=== PATIENT | male | born 1945 ===

== ENCOUNTER → 2018-07-11 | Outpatient (CLI) | payer MEDICARE, OTHER ==
[~2018-07-11] MED LIST: ALLO300 PO; CELE200 PO; DIAZ10 PO; DIAZ5 PO; EZET10-40 PO; LEVSOD75 PO; LISI5 PO; LORA.5 PO; LORA2 PO; METFORMIN 1000 MG; OXYACE5T PO; TAMS.4ER PO; VENL150ER PO
[2018-07-11 13:46] LABS: Creatinine, Urine Random 83.3 mg/dL (27.00-270.00); Protein, Urine Random 8.8 mg/dL (0.0-11.9)
== END ==
LOC: LAB 11:00 → LAB SHORT 11:00
PROVIDERS: Internal Medicine
DX: N18.2 Chronic kidney disease, stage 2 (mild) (principal)
CPT/HCPCS: 82570; 84156

== ENCOUNTER 2019-02-21 16:12 | Inpatient (IN) | payer MEDICARE, OTHER ==
[~2019-02-21] VITALS: Ht 182.9 cm; Wt 125.6 kg
[~2019-02-21 16:12] MED LIST changes: -LEVSOD75 PO; -LISI5 PO; -TAMS.4ER PO; -VENL150ER PO
[2019-02-21] MEDS ORDERED: CYCL10 PO (17:22)
[2019-02-21] MEDS ORDERED: LEVSOD75 PO ×2 (17:23→20:13)
[2019-02-21 17:24] LABS: BASOPHILS ABSOLUTE AUTO 0.05 K/mm3 (0.00-0.23); BASOPHILS PERCENT AUTO 0 % (0-2); EOSINOPHILS ABSOLUTE AUTO 0.21 K/mm3 (0.00-0.68); EOSINOPHILS PERCENT AUTO 1 % (0-6); Hemoglobin 12.2 g/dL (13.5-17.5); IMMATURE GRAN ABSOLUTE AUTO 0.24 K/mm3 (0.00-0.10); IMMATURE GRAN PERCENT AUTO 2 % (0-1); LYMPHOCYTES ABSOLUTE AUTO 2.37 K/mm3 (0.84-5.20); LYMPHOCYTES PERCENT AUTO 16 % (21-46); MONOCYTES ABSOLUTE AUTO 2.35 K/mm3 (0.16-1.47); MONOCYTES PERCENT AUTO 16 % (4-13); Mean Corpuscular HGB Conc 30.5 g/dL (31.5-36.5); Mean Corpuscular Volume 95 fL (80-100); Mean Platelet Volume 9.7 fL (9.1-12.4); NEUTROPHILS ABSOLUTE AUTO 9.87 K/mm3 (1.96-9.15); NEUTROPHILS PERCENT AUTO 65 % (41-73); Platelet Count 417 K/mm3 (150-400); RDW Coefficient Variation 13.8 % (11.7-14.2); RDW Standard Deviation 48.2 fL (35.1-46.3); Red Blood Cell Count 4.21 M/mm3 (4.30-5.90); White Blood Cell Count 15.09 K/mm3 (4.00-11.30)
[2019-02-21] MEDS ORDERED: Prinivil10 MG PO ×2 (17:24→20:13)
[2019-02-21] MEDS ORDERED: PRED20 PO (17:24)
[2019-02-21 17:40] LABS: Troponin I <0.015 ng/mL (0.000-0.040)
[2019-02-21 17:41] LABS: Ethanol (Alcohol), Blood, Med <3 mg/dL
[2019-02-21 17:43] LABS: Alanine Aminotransfer (ALT/SGP 59 U/L (12-78); Albumin, Blood 2.2 g/dL (3.4-5.0); Albumin/Globulin Ratio 0.4 (0.8-1.8); Alk Phos 148 U/L (50-136); Anion Gap 8 mmol/L (6-16); Aspartate Aminotrans (AST/SGOT 52 U/L (12-37); Bilirubin, Total 0.3 mg/dL (0.1-1.0); Blood Urea Nitrogen 28 mg/dL (8-24); Bun/Creatinine Ratio 20.9 (12.0-20.0); CO2, Blood 24 mmol/L (21-32); Calcium, Blood 8.8 mg/dL (8.5-10.1); Chloride, Blood 108 mmol/L (98-108); Creatinine, Blood 1.34 mg/dL (0.60-1.20); Globulin, Blood 4.9 g/dL (2.2-4.0); Glomerular Filtration Rate 55 (60-); Glucose, Blood 109 mg/dL (70-99); Sodium, Blood 140 mmol/L (136-145); Total Protein, Blood 7.1 g/dL (6.4-8.2)
[2019-02-21 17:53] LABS: PCO2 Arterial 50.1 mmHg (35-45); PO2 Arterial 61.6 mmHg (80-100); pH Blood Arterial 7.37 (7.35-7.45)
[2019-02-21 18:02] LABS: Source, Urine Catheter
[2019-02-21 18:11] LABS: Bilirubin, Urine Neg (Neg); Blood, Urine Neg (Neg); Glucose Qualitative, Urine Neg (Neg); Ketones, Urine Neg (Neg); Leukocyte Esterase, Urine Neg (Neg); Nitrite, Urine Neg (Neg); Protein, Urine 1+ (Neg); Urobilinogen, Urine NORM (Normal)
[2019-02-21 18:33] LABS: U Amphetamine Screen Not Detected; U Barbituate Screen Not Detected; U Benzodiazapine Screen Not Detected; U Buprenorphine Screen Not Detected; U Cannabinoids Screen Not Detected; U Cocaine Screen Not Detected; U Methadone Screen Not Detected; U Methamphetamine Screen Not Detected; U Opiates Screen Not Detected; U Oxycodone Screen Not Detected; U Phencyclidine Screen Not Detected; U Propoxyphene Screen Not Detected
[2019-02-21 18:44] LABS: Appearance, Urine Clear (Clear); Color, Urine Yellow (P-Yellow)
[2019-02-21] MEDS ORDERED: ZOLP10 PO (20:06)
[2019-02-21] MEDS ORDERED: TAMS.4ER PO (20:08)
[2019-02-21] MEDS ORDERED: METF500C PO (20:09)
[2019-02-21] MEDS ORDERED: DIVA500ER PO (20:09)
[2019-02-21] MEDS ORDERED: Inderal40 MG PO (20:09)
[2019-02-21] MEDS ORDERED: Ultram50 MG PO (20:11)
[2019-02-21] MEDS ORDERED: VENL150ER PO (20:12)
[2019-02-21] MEDS ORDERED: AMLO10 PO (20:14)
[2019-02-21] MEDS ORDERED: ATOR20 PO (20:14)
[2019-02-21 20:49] LABS: Appearance, CSF Clear (Clear); Color, CSF No Color (No Color); RBC Count, CSF 0 /mm3 (0-0); WBC Count, CSF 1 /mm3 (0-5)
[2019-02-21 21:05] LABS: Glucose, CSF 69 mg/dL (40-70)
[2019-02-21 21:57] LABS: Cryptococcus Neoformans/Gattii Not Detected (NOT DETECT); Enterovirus Not Detected (NOT DETECT); Escherichia Coli K1 Not Detected (NOT DETECT); Haemophilus Influenza Not Detected (NOT DETECT); Herpes Simplex Virus 1 Not Detected (NOT DETECT); Herpes Simplex Virus 2 Not Detected (NOT DETECT); Human Herpesvirus 6 Not Detected (NOT DETECT); Human Parechovirus Not Detected (NOT DETECT); Listeria Monocytogenes Not Detected (NOT DETECT); Neisseria Meningitidis Not Detected (NOT DETECT); Streptococcus Agalactiae Not Detected (NOT DETECT); Streptococcus Pneumoniae Not Detected (NOT DETECT); Varicella Zoster Virus Not Detected (NOT DETECT)
[2019-02-21 22:43] LABS: Free Thyroxine 1.35 ng/dL (0.70-1.60); Troponin I <0.015 ng/mL (0.000-0.040)
[2019-02-22 00:46] LABS: BASOPHILS ABSOLUTE AUTO 0.03 K/mm3 (0.00-0.23); BASOPHILS PERCENT AUTO 0 % (0-2); EOSINOPHILS PERCENT AUTO 1 % (0-6); Hematocrit 37.5 % (37.0-53.0); Hemoglobin 11.4 g/dL (13.5-17.5); IMMATURE GRAN ABSOLUTE AUTO 0.28 K/mm3 (0.00-0.10); IMMATURE GRAN PERCENT AUTO 2 % (0-1); LYMPHOCYTES ABSOLUTE AUTO 1.48 K/mm3 (0.84-5.20); LYMPHOCYTES PERCENT AUTO 10 % (21-46); MONOCYTES ABSOLUTE AUTO 1.15 K/mm3 (0.16-1.47); MONOCYTES PERCENT AUTO 8 % (4-13); Mean Corpuscular HGB 29.1 pg (26.0-34.0); Mean Corpuscular HGB Conc 30.4 g/dL (31.5-36.5); Mean Corpuscular Volume 96 fL (80-100); Mean Platelet Volume 9.5 fL (9.1-12.4); NEUTROPHILS ABSOLUTE AUTO 12.32 K/mm3 (1.96-9.15); NEUTROPHILS PERCENT AUTO 80 % (41-73); Platelet Count 367 K/mm3 (150-400); RDW Coefficient Variation 14.1 % (11.7-14.2); RDW Standard Deviation 49.7 fL (35.1-46.3); Red Blood Cell Count 3.92 M/mm3 (4.30-5.90); White Blood Cell Count 15.36 K/mm3 (4.00-11.30)
[2019-02-22 01:27] LABS: Bun/Creatinine Ratio 15.4 (12.0-20.0); Calcium, Blood 8.7 mg/dL (8.5-10.1); Creatinine, Blood 2.47 mg/dL (0.60-1.20)
[2019-02-22 05:10] LABS: Albumin, Blood 2.2 g/dL (3.4-5.0); Albumin/Globulin Ratio 0.4 (0.8-1.8); Bilirubin, Total 0.2 mg/dL (0.1-1.0); Bun/Creatinine Ratio 15.2 (12.0-20.0); Calcium, Blood 8.8 mg/dL (8.5-10.1); Creatinine, Blood 2.82 mg/dL (0.60-1.20); Globulin, Blood 4.9 g/dL (2.2-4.0); Potassium, Blood 6.2 mmol/L (3.5-5.5); Total Protein, Blood 7.1 g/dL (6.4-8.2)
--- NOTE | 2019-02-22 07:21 | NUR ---
SHIFT SUMMARY PT SLEPT AFTER ADMISSION TO ICU FOR MAJORITY OF NIGHT. AT THE END OF SHIFT PT SEEMES TO BE MORE COHERENT, HOWEVER, STILL MAKES INAPPROPRIATE STATEMENTS OCCASIONALLY AND SEEMES FORGETFUL. CURRENTLY INFUSING IS LR AT 150ML/HR. PT DENIES CP/SOB/ABDOMINAL PAIN. D50 AND IV REGULAR INSULIN WERE GIVEN TO CORRECT POTASSIUM, ALONG WITH CALCIUM GLUCONATE OVER NIGHT. RISING CREATINING AND POTASSIUM SUGGEST WORSENING KIDNEY FUNCTION; BLADDER SCANNER SHOWED 107ML, AND BLADDER WAS NOT EASILY PALPATED. PT STATES HE DOESNT FEEL THE NEED TO VOID BUT AT THE END OF SHIFT, HE FELT LIKE HE COULD TRY, BUT WAS NOT ABLE TO. DAUGHTER SPENT THE NIGHT IN ROOM AT THE BEDSIDE. PT REFUSED CPAP OVERNIGHT, BUT ALLOWED 2LNC, AND HE MAINTAINED SAT'S MID 90'S. NO BM OVERNIGHT. BED IS LOW AND LOCKED. CALL LIGHT WITHIN REACH.
[2019-02-22 07:38] LABS: Phosphorus, Blood 4.9 mg/dL (2.5-4.9)
--- NOTE | 2019-02-22 07:39 | NUR ---
CALL PLACED TO DR PENNINGTON Spoke to provider at 0715 to discuss decrease in kidney function since presenting to ER. Notified of lack of urine output. Asked for order for phosphorus and magnesium to be added to previously drawn labs. New orders given. Notified Dr Pennington that pt sees Dr Marks as an outpatient, Asked for nephrology consultation. No new orders at this time. Temp flores inserted for strict measurement of fluid intake and output.
--- NOTE | 2019-02-22 09:01 | NUR ---
DR MARKS CONSULTED Placed call to provider at 0830. Unable to reach provider. Provider called unit at 0845. Discussed urine output and abnormal labs. Plan to call Dr Marks if pt remains hyperkalemic. Discussed current IV fluids.
[2019-02-22 09:24] LABS: PCO2 Arterial 40.5 mmHg (35-45); pH Blood Arterial 7.37 (7.35-7.45)
[2019-02-22 09:25] LABS: PO2 Arterial 72.2 mmHg (80-100)
[2019-02-22 09:57] LABS: Albumin, Blood 2.2 g/dL (3.4-5.0); Albumin/Globulin Ratio 0.4 (0.8-1.8); Bilirubin, Total 0.2 mg/dL (0.1-1.0); Bun/Creatinine Ratio 15.6 (12.0-20.0); Creatinine, Blood 3.02 mg/dL (0.60-1.20); Globulin, Blood 4.9 g/dL (2.2-4.0); Total Protein, Blood 7.1 g/dL (6.4-8.2)
--- NOTE | 2019-02-22 10:07 | NUR ---
CRITCAL POTASSIUM This RN placed call to lab to inquire about potassium results. Critical value given. Call placed to Dr Marks to update. New orders given. No changes noted on heart monitor.
[2019-02-22 14:21] LABS: Albumin, Blood 2.3 g/dL (3.4-5.0); Anion Gap 6 mmol/L (6-16); Blood Urea Nitrogen 51 mg/dL (8-24); Bun/Creatinine Ratio 19.8 (12.0-20.0); CO2, Blood 26 mmol/L (21-32); Calcium, Blood 9.5 mg/dL (8.5-10.1); Chloride, Blood 106 mmol/L (98-108); Creatinine, Blood 2.57 mg/dL (0.60-1.20); Glomerular Filtration Rate 26 (60-); Glucose, Blood 164 mg/dL (70-99); Phosphorus, Blood 4.3 mg/dL (2.5-4.9); Potassium, Blood 5.3 mmol/L (3.5-5.5); Sodium, Blood 138 mmol/L (136-145)
--- NOTE | 2019-02-22 14:59 | NUR ---
DR FIGUEROA IN TO SEE PT Pt's and daughter at bedside. Pt okay to have renal/cardiac/ADA diet. Also able to transfer to PCU.
[2019-02-22 16:29] LABS: Valproic Acid 43.2 ug/mL (50.0-100.0)
--- NOTE | 2019-02-22 18:07 | NUR ---
SUMMARY Pt A&O x 3, however forgetful and confused at times. Pt has labile mood. Currently on room air, SpO2 90% or greater. SR with first degree heart block per monitor. No events per heart monitor. Pt tolerating renal/cardiac/ADA diet well. Pt had one soft bowel movemement on bedpan this shift. This RN and aide assisted pt to bedside commode earlier, however he was unsteady on feet and did not follow directions well with ambulation. Duke catheter in place for strict measurement of fluid intake and output. Red urine draining from catheter. Pt often pulls on catheter. When instructed not to do so, pt states "I'm not pulling on it." When instructed not to touch catheter, pt states "Well its uncomfortable and I'm not going to stop." Catheter disucussed in great detail with patient by this RN and Dr Pennington. Will continue to closely monitor until care handoff and bedside report with oncoming RN.
--- NOTE | 2019-02-22 19:45 | NUR ---
ASSUMED CARE RECEIVED REPORT FROM KASSIE NAVAS. PT ORIENTED TO SELF, PLACE, AND FAMILY. HE IS SLIGHTLY CONFUSED STILL AND IS IRRITABLE, VERGING ON AGITATION AT TIMES. LAYING ON SIDE IN BED. DENIES PAIN AND SOB. BED IS LOW AND LOCKED. CALL LIGHT WITHIN REACH.
--- NOTE | 2019-02-23 01:43 | NUR ---
UPDATE PT HAS REFUSED CPAP, AND BLOOD GLUCOSE TEST A 2100, HENCE I COULDNT GIVE HIM HIS SLIDING SCALE INSULIN. PT IS SLIGHTLY CONFUSED, BUT MORE ORIENTED THAN HE WAS UPON ADMISSION. HE IS IRRITABLE, VERGING ON AGITATION - CONFUSED WHY HE IS NOT TAKING HIS NORMAL MEDS THAT HE TAKES AT HOME. PER THE FAMILY HE IS VERY STUBBORN WHEN IT COMES TO HEALTHCARE. HE BELIEVES HE IS IN THE ICU BECAUSE OF HIS WORSENING GOUT. I TRIED REORIENTING HIM TO WHY HE IS HERE, AND THE CURRENT PLAN OF CARE - BUT HE BECOMES ARGUMENTATIVE AND DOES NOT WANT TO LISTEN. I SUGGESTED HE ASK THE DOCTOR DURING MORNING ROUNDS TO GIVE HIM AN UPDATE.
[2019-02-23 03:34] LABS: BASOPHILS ABSOLUTE AUTO 0.04 K/mm3 (0.00-0.23); BASOPHILS PERCENT AUTO 0 % (0-2); EOSINOPHILS ABSOLUTE AUTO 0.02 K/mm3 (0.00-0.68); EOSINOPHILS PERCENT AUTO 0 % (0-6); Hematocrit 36.4 % (37.0-53.0); Hemoglobin 11.6 g/dL (13.5-17.5); IMMATURE GRAN ABSOLUTE AUTO 0.25 K/mm3 (0.00-0.10); IMMATURE GRAN PERCENT AUTO 2 % (0-1); LYMPHOCYTES PERCENT AUTO 15 % (21-46); MONOCYTES ABSOLUTE AUTO 1.69 K/mm3 (0.16-1.47); MONOCYTES PERCENT AUTO 12 % (4-13); Mean Corpuscular HGB 29.1 pg (26.0-34.0); Mean Corpuscular HGB Conc 31.9 g/dL (31.5-36.5); Mean Platelet Volume 9.4 fL (9.1-12.4); NEUTROPHILS ABSOLUTE AUTO 10.47 K/mm3 (1.96-9.15); NEUTROPHILS PERCENT AUTO 71 % (41-73); Platelet Count 394 K/mm3 (150-400); RDW Coefficient Variation 13.5 % (11.7-14.2); RDW Standard Deviation 45.5 fL (35.1-46.3); Red Blood Cell Count 3.98 M/mm3 (4.30-5.90); White Blood Cell Count 14.67 K/mm3 (4.00-11.30)
[2019-02-23 03:40] LABS: Mean Corpuscular Volume 92 fL (80-100)
[2019-02-23 03:49] LABS: Albumin, Blood 2.2 g/dL (3.4-5.0); Anion Gap 5 mmol/L (6-16); Blood Urea Nitrogen 41 mg/dL (8-24); Bun/Creatinine Ratio 28.5 (12.0-20.0); CO2, Blood 28 mmol/L (21-32); Chloride, Blood 109 mmol/L (98-108); Creatinine, Blood 1.44 mg/dL (0.60-1.20); Glomerular Filtration Rate 51 (60-); Glucose, Blood 140 mg/dL (70-99); Phosphorus, Blood 2.5 mg/dL (2.5-4.9); Potassium, Blood 4.7 mmol/L (3.5-5.5); Sodium, Blood 142 mmol/L (136-145)
--- NOTE | 2019-02-23 07:37 | NUR ---
SHIFT SUMMARY PT ALERT AND ORIENTED TO SELF, SURROUNDINGS, FAMILY AND FOLLOWS SOME DIRECTIONS. HE BECOMES IRRITABLE AND AGITATED EASILY AND HAS BEEN REFUSING CARE. HE LIKES TO PULL AT HIS CHAVEZ, IV, AND CHORDS. HAS TO BE REDIRECTED TO THE SITUATION. HE BELIEVES HES IN HERE BECAUSE HE STOPPED TAKING HIS MEDS AND HIS GOUT GOT WORSE; DOES NOT COMPREHEND THAT HE WAS GETTING CONFUSED. PT HAD SUFFICIENT URINE OUTPUT, AND HAD A BM OVERNIGHT. PT IS NOT STEADY ON HIS FEET, AND IS WOBLY. SLEPT FOR MAJORITY OF SHIFT. BED IS LOW AND LOCKED. CALL LIGHT WITHIN REACH.
--- NOTE | 2019-02-23 11:30 | NUR ---
DR PENNINGTON IN TO SEE PT Pt's daughter states pt is back to baseline mentation. Dr Pennington states pt to discharge today. DC Duke and IV fluids.
--- NOTE | 2019-02-23 11:49 | NUR ---
DR MARKS IN ROOM Notified provider that Dr Pennington would like to discharge pt today. Dr Marks agreeable with this plan.
[2019-02-23] MEDS ORDERED: MELATONIN5 M1 PO (12:56)
[2019-02-23] MEDS ORDERED: ACET325 PO (12:57)
--- NOTE | 2019-02-23 14:59 | NUR ---
DISCHARGE Pt discharged from unit at 1330 accompanied by spouse, son and daughter. Pt departed via wheelchair, escorted by this RN. Discharge education provided. Reviewed medications that pt is to stop taking. Pt and family denied questions. Duke catheter removed prior to discharge. IV access discontinued.
[2019-02-24 07:07] LABS: COMPLEMENT C3, SERUM 208 mg/dL (82-167); COMPLEMENT C4, SERUM 53 mg/dL (14-44)
[2019-02-24 19:06] LABS: ANTI-DSDNA ANTIBODIES <1 IU/mL (0-9); RNP ANTIBODIES <0.2 AI (0.0-0.9); SJOGREN'S ANTI-SS-A <0.2 AI (0.0-0.9); SJOGREN'S ANTI-SS-B <0.2 AI (0.0-0.9); SMITH ANTIBODIES <0.2 AI (0.0-0.9)
[2019-02-25 15:07] LABS: A/G RATIO 0.8 (0.7-1.7); ALBUMIN 2.4 g/dL (2.9-4.4); ALPHA-1-GLOBULIN 0.4 g/dL (0.0-0.4); ALPHA-2-GLOBULIN 1.3 g/dL (0.4-1.0); GAMMA GLOBULIN 0.7 g/dL (0.4-1.8); GLOBULIN, TOTAL 3.3 g/dL (2.2-3.9); IMMUNOGLOBULIN A, QN, SERUM 139 mg/dL (61-437); IMMUNOGLOBULIN G, QN, SERUM 709 mg/dL (700-1600); IMMUNOGLOBULIN M, QN, SERUM 53 mg/dL (15-143); M-SPIKE Not Observed g/dL (Not Observed); PROTEIN, TOTAL, SERUM 5.7 g/dL (6.0-8.5)
[2019-02-26 15:07] LABS: ATYPICAL PANCA <1:20 titer (Neg:<1:20); CYTOPLASMIC (C-ANCA) <1:20 titer (Neg:<1:20); PERINUCLEAR (P-ANCA) <1:20 titer (Neg:<1:20)
== END 2019-02-23 13:30 | disposition home or self-care (01) | DRG 917 ==
LOC: ER 16:12 → ICUW 22:59
PROVIDERS: Emergency Medicine; Family Medicine; Internal Medicine; Nurse Practitioner Acute Care; ADMIT Internal Medicine
PROC: 009U3ZX Drainage of Spinal Canal, Percutaneous Approach, Diagnostic (ICD-10-PCS; principal; 2019-02-21)
DX: T40.4X1A Poisoning by other synthetic narcotics, accidental (unintentional), initial encounter (principal); G92 Toxic encephalopathy; J96.02 Acute respiratory failure with hypercapnia; J96.01 Acute respiratory failure with hypoxia; N17.9 Acute kidney failure, unspecified; M62.82 Rhabdomyolysis; E87.5 Hyperkalemia; I12.9 Hypertensive chronic kidney disease with stage 1 through stage 4 chronic kidney disease, or unspecified chronic kidney disease; E11.22 Type 2 diabetes mellitus with diabetic chronic kidney disease; N18.3 Chronic kidney disease, stage 3 (moderate); E66.9 Obesity, unspecified; E03.9 Hypothyroidism, unspecified; E78.5 Hyperlipidemia, unspecified; G89.29 Other chronic pain; F32.9 Major depressive disorder, single episode, unspecified; M10.072 Idiopathic gout, left ankle and foot
CPT/HCPCS: 36415; 36600; 51702; 62270; 70450; 71045; 80048; 80053; 80069; 80164; 82140; 82550; 82784; 82803; 82945; 82947; 83605; 83735; 83880; 84100; 84157; 84165; 84439; 84443; 84481; 84484; 85025; 86160; 86225; 86235; 86256; 86334; 87040; 87070; 87205; 87483; 89051; 93005; 93010; 96361-59; 96365-59; 96375-59; 99285-25; C1751; G0480; J0610; J0696; J1100; J1644; J1815; J1940; J2060; J2310; J3010; J3370; J7030; J7050; J7120; J7799; J8499

== ENCOUNTER 2021-09-17 09:21 | Emergency (ER) | payer MEDICARE, BC ==
[~2021-09-17] VITALS: Ht 182.9 cm; Wt 119.3 kg
[~2021-09-17 09:21] MED LIST changes: +ACET325 PO; +AMLO10 PO; +ATOR20 PO; +CYCL10 PO; +DIVA500ER PO; +Inderal40 MG PO; +LEVSOD75 PO; +MELATONIN5 M1 PO; +METF500C PO; +PRED20 PO; +Prinivil10 MG PO; +TAMS.4ER PO; +Ultram50 MG PO; +VENL150ER PO; +ZOLP10 PO
[2021-09-17 11:00] LABS: BASOPHILS ABSOLUTE AUTO 0.05 K/mm3 (0.00-0.23); BASOPHILS PERCENT AUTO 1 % (0-2); EOSINOPHILS ABSOLUTE AUTO 0.74 K/mm3 (0.00-0.68); EOSINOPHILS PERCENT AUTO 7 % (0-6); Hemoglobin 12.8 g/dL (13.5-17.5); IMMATURE GRAN ABSOLUTE AUTO 0.07 K/mm3 (0.00-0.10); IMMATURE GRAN PERCENT AUTO 1 % (0-1); LYMPHOCYTES ABSOLUTE AUTO 3.27 K/mm3 (0.84-5.20); LYMPHOCYTES PERCENT AUTO 31 % (21-46); MONOCYTES ABSOLUTE AUTO 0.94 K/mm3 (0.16-1.47); MONOCYTES PERCENT AUTO 9 % (4-13); Mean Corpuscular HGB 29.7 pg (26.0-34.0); Mean Corpuscular HGB Conc 31.2 g/dL (31.5-36.5); Mean Corpuscular Volume 95 fL (80-100); NEUTROPHILS ABSOLUTE AUTO 5.48 K/mm3 (1.96-9.15); NEUTROPHILS PERCENT AUTO 52 % (41-73); RDW Coefficient Variation 14.6 % (11.7-14.2); RDW Standard Deviation 50.4 fL (35.1-46.3); Red Blood Cell Count 4.31 M/mm3 (4.30-5.90); White Blood Cell Count 10.55 K/mm3 (4.00-11.30)
[2021-09-17 11:19] LABS: Albumin, Blood 3.3 g/dL (3.4-5.0); Bilirubin, Total 0.2 mg/dL (0.1-1.0); Bun/Creatinine Ratio 34.8 (12.0-20.0); Calcium, Blood 8.8 mg/dL (8.5-10.1); Creatinine, Blood 1.35 mg/dL (0.60-1.20); Globulin, Blood 3.3 g/dL (2.2-4.0); Potassium, Blood 4.8 mmol/L (3.5-5.5); Total Protein, Blood 6.6 g/dL (6.4-8.2)
[2021-09-17 11:42] LABS: Platelet Count 206 K/mm3 (150-400)
[2021-09-17 11:43] LABS: Mean Platelet Volume 10.4 fL (9.1-12.4)
[2021-09-17 12:06] LABS: Free Thyroxine 1.16 ng/dL (0.70-1.60); Thyroid Stimulating Hormone 3.75 uIU/mL (0.360-4.800); Triiodothyronine, Free 2.46 pg/mL (2.18-3.98)
[2021-09-17] MEDS ORDERED: AMIT50 PO (13:07)
== END 2021-09-17 13:18 | disposition home or self-care (01) ==
LOC: ER 09:21
PROVIDERS: Emergency Medicine; Physician Assistant
DX: R51.9 Headache, unspecified (principal); E03.9 Hypothyroidism, unspecified; E11.9 Type 2 diabetes mellitus without complications; E78.5 Hyperlipidemia, unspecified; I10 Essential (primary) hypertension; Z87.891 Personal history of nicotine dependence; Z79.899 Other long term (current) drug therapy
CPT/HCPCS: 70450; 80053; 84439; 84443; 84481; 85025

== ENCOUNTER 2021-09-26 20:58 | Inpatient (IN) | payer MEDICARE ==
[~2021-09-26] VITALS: Ht 182.9 cm; Wt 123.0 kg
[~2021-09-26 20:58] MED LIST changes: +AMIT50 PO
[2021-09-26 21:26] LABS: PCO2 Venous 45.1 mmHg (38-42); PO2 Venous 78.4 mmHg (38-42); pH Blood Venous 7.13 (7.34-7.37)
[2021-09-26 21:35] LABS: BASOPHILS ABSOLUTE AUTO 0.06 K/mm3 (0.00-0.23); BASOPHILS PERCENT AUTO 0 % (0-2); EOSINOPHILS ABSOLUTE AUTO 0.52 K/mm3 (0.00-0.68); EOSINOPHILS PERCENT AUTO 3 % (0-6); Hematocrit 39.7 % (37.0-53.0); Hemoglobin 12.3 g/dL (13.5-17.5); IMMATURE GRAN PERCENT AUTO 1 % (0-1); LYMPHOCYTES ABSOLUTE AUTO 3.27 K/mm3 (0.84-5.20); LYMPHOCYTES PERCENT AUTO 22 % (21-46); MONOCYTES ABSOLUTE AUTO 1.08 K/mm3 (0.16-1.47); MONOCYTES PERCENT AUTO 7 % (4-13); Mean Corpuscular HGB 29.9 pg (26.0-34.0); Mean Corpuscular Volume 97 fL (80-100); Mean Platelet Volume 9.9 fL (9.1-12.4); NEUTROPHILS ABSOLUTE AUTO 10.18 K/mm3 (1.96-9.15); NEUTROPHILS PERCENT AUTO 67 % (41-73); Platelet Count 231 K/mm3 (150-400); RDW Coefficient Variation 13.9 % (11.7-14.2); RDW Standard Deviation 49.5 fL (35.1-46.3); Red Blood Cell Count 4.11 M/mm3 (4.30-5.90); White Blood Cell Count 15.21 K/mm3 (4.00-11.30)
[2021-09-26] MEDS ORDERED: LOSARTAN-HCTZ1 EAC5 PO (21:52)
[2021-09-26] MEDS ORDERED: ALLO300 PO (21:52)
[2021-09-26] MEDS ORDERED: FAMO20 PO (21:53)
[2021-09-26] MEDS ORDERED: CATAPRES0.1 MG PO (21:55)
[2021-09-26 22:00] LABS: Alanine Aminotransfer (ALT/SGP 26 U/L (12-78); Albumin, Blood 2.9 g/dL (3.4-5.0); Albumin/Globulin Ratio 0.8 (0.8-1.8); Alk Phos 96 U/L (50-136); Anion Gap 20 mmol/L (6-16); Aspartate Aminotrans (AST/SGOT 16 U/L (12-37); Bilirubin, Total 0.4 mg/dL (0.1-1.0); Blood Urea Nitrogen 57 mg/dL (8-24); Bun/Creatinine Ratio 13.2 (12.0-20.0); CO2, Blood 17 mmol/L (21-32); Calcium, Blood 8.7 mg/dL (8.5-10.1); Chloride, Blood 99 mmol/L (98-108); Creatinine, Blood 4.31 mg/dL (0.60-1.20); Ethanol (Alcohol), Blood, Med <3 mg/dL; Globulin, Blood 3.5 g/dL (2.2-4.0); Glomerular Filtration Rate 13 (60-); Glucose, Blood 98 mg/dL (70-99); Magnesium, Blood 1.9 mg/dL (1.6-2.4); Potassium, Blood 5.4 mmol/L (3.5-5.5); Sodium, Blood 136 mmol/L (136-145); Total Protein, Blood 6.4 g/dL (6.4-8.2)
[2021-09-26] MEDS ORDERED: Oxycodone HCl20 M1 PO (22:25)
[2021-09-26] MEDS ORDERED: ATOR40TA PO (22:26)
[2021-09-26] MEDS ORDERED: LINZESS72 MCG PO (22:27)
[2021-09-26] MEDS ORDERED: METPRE4DP PO (22:28)
[2021-09-26] MEDS ORDERED: ZANAFLEX PO (22:28)
[2021-09-26] MEDS ORDERED: ZOLPIDEM TART12.5 MG PO (22:29)
[2021-09-26] MEDS ORDERED: Inderal40 MG PO (22:29)
[2021-09-26] MEDS ORDERED: DIVALPROEX SOD500 M2 PO (22:30)
[2021-09-26] MEDS ORDERED: [UNRECOGNIZED DRUG - CODE] PO (22:31)
[2021-09-26 22:36] LABS: Source, Urine Straight Cath
[2021-09-26 22:38] LABS: Blood, Urine 1+ (Neg); Glucose Qualitative, Urine Neg (Neg); Ketones, Urine 1+ (Neg); Leukocyte Esterase, Urine Neg (Neg); Nitrite, Urine Neg (Neg); Protein, Urine 2+ (Neg); Urobilinogen, Urine NORM (Normal)
[2021-09-26 22:49] LABS: Bilirubin, Urine 1+ (Neg)
[2021-09-26 22:50] LABS: Appearance, Urine Clear (Clear); Color, Urine Yellow (P-Yellow)
[2021-09-26 22:51] LABS: White Blood Cells, Urine 0-2 /hpf (0-5)
[2021-09-26 22:52] LABS: Bacteria Mod /hpf; Squamous Epithelial Cells Not Seen /hpf (Few); Transitional Epithelial Cells Rare /hpf (0-Rare)
[2021-09-26 22:53] LABS: U Amphetamine Screen Not Detected; U Barbituate Screen DETECTED; U Benzodiazapine Screen Not Detected; U Buprenorphine Screen Not Detected; U Cannabinoids Screen Not Detected; U Cocaine Screen Not Detected; U Methadone Screen Not Detected; U Methamphetamine Screen Not Detected; U Opiates Screen Not Detected; U Oxycodone Screen DETECTED; U Phencyclidine Screen Not Detected; U Propoxyphene Screen Not Detected
[2021-09-26 23:17] LABS: Influenza A Negative (NEGATIVE); Influenza B Negative (NEGATIVE)
[2021-09-26 23:33] LABS: SARS-Cov-2 (COVID-19) PCR, MMC NEGATIVE (NEGATIVE)
[2021-09-27 00:40] LABS: Valproic Acid 97.6 ug/mL (50.0-100.0)
[2021-09-27 03:27] LABS: Source, Urine Foley catheter
[2021-09-27 03:29] LABS: Blood, Urine 2+ (Neg); Glucose Qualitative, Urine Neg (Neg); Ketones, Urine 1+ (Neg); Leukocyte Esterase, Urine Neg (Neg); Nitrite, Urine Neg (Neg); Protein, Urine 2+ (Neg); Specific Gravity, Urine 1.015 (1.003-1.022); Urobilinogen, Urine NORM (Normal)
[2021-09-27 05:05] LABS: Appearance, Urine Clear (Clear); Bilirubin, Urine 1+ (Neg); Color, Urine Yellow (P-Yellow)
[2021-09-27 05:06] LABS: Albumin, Blood 2.8 g/dL (3.4-5.0); Albumin/Globulin Ratio 0.8 (0.8-1.8); Bilirubin, Total 0.3 mg/dL (0.1-1.0); Calcium, Blood 8.2 mg/dL (8.5-10.1); Creatinine, Blood 4.13 mg/dL (0.60-1.20); Globulin, Blood 3.3 g/dL (2.2-4.0); Potassium, Blood 5.8 mmol/L (3.5-5.5); Total Protein, Blood 6.1 g/dL (6.4-8.2)
[2021-09-27 05:06] LABS: Bacteria Few /hpf; Red Blood Cells, Urine 0-2 /hpf (0-2); Squamous Epithelial Cells Few /hpf (Few)
--- NOTE | 2021-09-27 06:07 | NUR ---
ASSUMED CARE AND PATIENT ARRIVED TO ICU AT 0045 SHIFT SUMMARY: NEURO - PT WAS EXTREMELY CONFUSED AND COMBATIVE UPON TRANSFER TO ICU. 4-5 RNs AND PT ED TEACHER ASSISTED TO GET PATIENT RESTRAINED. PT FAMILY WAS ABLE TO CALM PT DOWN BUT STILL WAS EXTREMELY CONFUSED. OVERNIGHT, PT MENTATION IMPROVING. ALERT TO SELF. NO LONGER COMBATIVE AND ABLE TO PARTICIPATE WITH CARE. CAN MOVE ALL EXT EQUALLY AND STRONG. BILAT SOFT WRIST RESTRAINTS REMAINS IN PLACE DUE TO RISK OF PT PULLING ON LINES AND CONFUSION. RESP - ON 3L NASAL CANNULA. LUNGS ARE DIMINISHED WITH EXP WHEEZING. NO COUGH. CARDIAC - HYPOTENSIVE, LEVOPHED WAS INITIATED BUT IS NOW OFF. PULSES ARE PALPABLE. NO EDEMA. AFEBRILE. GI/ - PLACED A RECTAL TUBE AND CHAVEZ CATHTER. 1X LACTULOSE ENEMA GIVEN OVERNIGHT. ABDOMEN FIRM AND HYPOACTIVE. INTEG - LEFT LEG SKIN TEAR, AND BRUISING ON LOWER BACK.
[2021-09-27 09:34] LABS: Albumin, Blood 2.9 g/dL (3.4-5.0); Anion Gap 19 mmol/L (6-16); Blood Urea Nitrogen 73 mg/dL (8-24); Bun/Creatinine Ratio 19.3 (12.0-20.0); CO2, Blood 17 mmol/L (21-32); Calcium, Blood 8.2 mg/dL (8.5-10.1); Chloride, Blood 104 mmol/L (98-108); Creatinine, Blood 3.79 mg/dL (0.60-1.20); Glomerular Filtration Rate 16 (60-); Glucose, Blood 185 mg/dL (70-99); Phosphorus, Blood 7.6 mg/dL (2.5-4.9); Sodium, Blood 140 mmol/L (136-145)
[2021-09-27 12:29] LABS: International Normalized Ratio 1.11; Prothrombin Time Results 11.6 Sec (9.7-11.5)
[2021-09-27 12:56] LABS: Albumin, Blood 2.9 g/dL (3.4-5.0); Albumin/Globulin Ratio 0.9 (0.8-1.8); Bilirubin, Total 0.5 mg/dL (0.1-1.0); Bun/Creatinine Ratio 20.7 (12.0-20.0); Creatinine, Blood 3.68 mg/dL (0.60-1.20); Globulin, Blood 3.3 g/dL (2.2-4.0); Potassium, Blood 4.8 mmol/L (3.5-5.5); Total Protein, Blood 6.2 g/dL (6.4-8.2)
--- NOTE | 2021-09-27 13:51 | NUR ---
REASSESSMENT PT CONTINUES TO BE VERY CONFUSED. HE IS ONLY ORIENTED TO HIMSELF. HE DOESN'T BELIEVE THIS NURSE WHEN HE IS TOLD HE IS IN THE HOSPITAL. HE OFTEN REFERS TO THIS NURSE BY HIS DAUGHTER, SALOMON'S NAME. HE TALKS TO PEOPLE THAT AREN'T VISIBLE IN THE ROOM. LUNGS ARE CLEAR. WHEN HE IS AWAKE HE MAINTAINS SPO2 AROUND 95% ON RA. WHEN HE SLEEPS HE SEEMS TO HAVE SOME SLEEP APNEA AND CYCLICALLY DROPS TO THE MID 80S SO 2L/NC PLACED ON HIM FOR WHEN HE IS SLEEPING. SR, SBP 150S WITH MAP IN THE 90S. CHAVEZ HAS CLOUDY YELLOW URINE WITH PINK TINGE. PT HAS PULLED 2 CHAVEZ STAT LOCKS OFF. HE IS CONTINUOUSLY FIDGETING AND TRYING TO PULL OFF HIS RESTRAINTS SO HE CAN GET OUT OF BED. HE IS NOT REDIRECTABLE. PT'S DAUGHTER AND VISITED PT AND WERE UPDATED.
--- NOTE | 2021-09-27 17:03 | NUR ---
SHIFT SUMMARY PT'S MENTATION HAS BEEN IMPROVING THROUGHOUT THE AFTERNOON. HE IS NOW ORIENTED TO PERSON, KNOWS HE IS IN [place] BUT HAS TROUBLE FIGURING OUT HE IS IN THE HOSPITAL. HE KNOWS THE MONTH AND YEAR. HE WILL START CONVERSING APPROPRIATELY BUT MID CONVERSATION HE WILL START TALKING ABOUT NONRELATED THINGS AND HIS CONFUSION STARTS TO SHOW AGAIN. HE IS FOLLOWING DIRECTIONS WELL ENOUGH THAT HE HAS BEEN SAFE TO HAVE THE LEG RESTRAINTS OFF, BED ALARM ON, BUT HE IS STILL PICKING AT HIS CHAVEZ AND CENTRAL LINE WHEN HE WAS TRIALLED WITHOUT THE WRIST RESTRAINTS. HIS LUNGS REMAIN CLEAR, CURRENTLY ON RA WITH SPO2 99%. SR WITH 1AVB, BP STABLE. HE HAS BEEN TOLERATING SIPS OF WATER. SPOKE WITH DR. KERNS AND GOT OK TO GIVE PT PO LACTULOSE INSTEAD OF ENIMA IF HE APPEARS SAFE TO DO SO. RECTAL TUBE REMAINS IN PLACE. CHAVEZ WITH GOOD OUTPUT, SEE I/O. PT'S FAMILY VISITED WITH HIM AGAIN THIS AFTERNOON.
--- NOTE | 2021-09-27 20:42 | NUR ---
ASSUMED CARE @ 1900 PT WAS GETTING AGITATED AND BECAME COMBATIVE UPON INITIAL ASSESSMENT. PT WAS ONLY ON BILAT SOFT WRIST RESTRAINTS AND WAS ABLE TO GET OUT OF 1X RESTRAINT. PT STARTED KICKING, TRYING TO HIT NURSES, UNABLE TO REASON WITH PT, EXTREMELY CONFUSED AN AGITATED. MD NOTIFIED OF PT BEHAVIOR AND CONCERN FOR PT SAFETY AND STAFF SAFETY. PRECEDEX WAS STARTED PER MD ORDER. 2029 - PT STILL VERY CONFUSED, NOT COMBATIVE ANYMORE. STILL TRYING TO PULL ON LINES/CORDS. REMAINS ON 4 POINT RESTRAINTS. PRECEDEX UP TO 1.0 MCG/KG/HR.
[2021-09-28 03:34] LABS: BASOPHILS ABSOLUTE AUTO 0.01 K/mm3 (0.00-0.23); BASOPHILS PERCENT AUTO 0 % (0-2); EOSINOPHILS PERCENT AUTO 0 % (0-6); Hematocrit 35.3 % (37.0-53.0); Hemoglobin 11.7 g/dL (13.5-17.5); IMMATURE GRAN ABSOLUTE AUTO 0.06 K/mm3 (0.00-0.10); IMMATURE GRAN PERCENT AUTO 1 % (0-1); LYMPHOCYTES ABSOLUTE AUTO 0.79 K/mm3 (0.84-5.20); LYMPHOCYTES PERCENT AUTO 7 % (21-46); MONOCYTES ABSOLUTE AUTO 1.77 K/mm3 (0.16-1.47); MONOCYTES PERCENT AUTO 16 % (4-13); Mean Corpuscular HGB 30.5 pg (26.0-34.0); Mean Corpuscular HGB Conc 33.1 g/dL (31.5-36.5); Mean Platelet Volume 9.8 fL (9.1-12.4); NEUTROPHILS ABSOLUTE AUTO 8.21 K/mm3 (1.96-9.15); NEUTROPHILS PERCENT AUTO 76 % (41-73); Platelet Count 202 K/mm3 (150-400); RDW Coefficient Variation 14.3 % (11.7-14.2); RDW Standard Deviation 47.7 fL (35.1-46.3); Red Blood Cell Count 3.84 M/mm3 (4.30-5.90); White Blood Cell Count 10.84 K/mm3 (4.00-11.30)
[2021-09-28 03:43] LABS: Mean Corpuscular Volume 92 fL (80-100)
[2021-09-28 03:51] LABS: Albumin, Blood 2.8 g/dL (3.4-5.0); Albumin/Globulin Ratio 0.9 (0.8-1.8); Bilirubin, Total 0.3 mg/dL (0.1-1.0); Bun/Creatinine Ratio 27.9 (12.0-20.0); Calcium, Blood 8.2 mg/dL (8.5-10.1); Creatinine, Blood 2.04 mg/dL (0.60-1.20); Globulin, Blood 3.1 g/dL (2.2-4.0); Potassium, Blood 4.2 mmol/L (3.5-5.5); Total Protein, Blood 5.9 g/dL (6.4-8.2)
--- NOTE | 2021-09-28 05:34 | NUR ---
SHIFT SUMMARY: NEURO - PT WAS CONFUSED AND ANXIOUS THROUGHOUT THE NIGHT. AT THE START OF MINE GEOLOGIST PT BECAME COMBATIVE AND EXTREMELY AGITATED - PRECEDEX GTT WAS STARTED. CURRENTLY PRECEDEX HAS BEEN TITRATED FROM MAXIMUM DOWN TO 0.8 MCG/KG/MIN. PT IS NOW CALM, BUT STILL PULLING ON RESTRAINTS AND LINES. APOLOGETIC BUT STILL CONFUSED. STARTING TO ACCEPT THAT HE IS IN A HOSPITAL AND THAT HE IS SICK. RESP - ON 1.5 L ON NASAL CANNULA. NO COUGH. NO COMPLAINTS OF SOB CARDIAC - HYPERTENSIVE WHEN PT WAS AGITATED. PULSES ARE PALPABLE. AFEBRILE. NO EDEMA. GI/ - STILL CURRENTLY NPO, TOLERATED SIPS OF WATER WHEN AWAKE AND ALERT. 2X LACTULOSE ENEMA GIVEN OVERNIGHT. RECTAL TUBE REMAINS IN PLACE, PATENT AND DRAINING TO GRAVITY. CHAVEZ CATHETER PATENT, PT WAS AGGRESSIVELY PULLING ON CATHETER WHEN PT WAS COMBATIVE AND AGITATED - PENIS STILL SLIGHTLY BLEEDING, URINE OUTPUT PINK/RED TINGED. INTEG - LEFT LEG DRESSING INTACT, BACK BRUISING INFUSIONS - PRECEDEX, NORMAL SALINE TO KEEP VEIN OPEN.
--- NOTE | 2021-09-28 07:31 | NUR ---
0800 assumed care: Dick was in bed alert to self and to place "hospital". His vs are stable at this time. He is on precedex to [facility] CL at 1.4. He remains in tough cuff restraints to upper extremeties bilat. to keep lines and tube safe. His urine is less pink at this time but he was pulling on the flores over night. Will assess swallow today and see if he will take his medication.
--- NOTE | 2021-09-28 14:26 | NUR ---
1400 UPDATE JOSE ANGEL HAAS HAS BEEN MUCH MORE APPROPRIATE TODAY. HE WAS TAKEN OUT OF RESTRAINTS AT 0930 AND HAS NOT PULLED ON ANY LINES. HE IS NOW OFF PRECEDEX AND BEING BEHAVIORALLY APPROPRIATE, NO PULLING AT THINGS, OR THRASHING IN BED OR FIGHTING STAFF. HE STATES HE FEELS AWFUL HE WAS EVEN LIKE THAT AND THAT HE THOUGHT IT WAS ALL A DREAM. OT WORKED WITH HIM THIS AFTERNOON AND STATED HE MOVED WELL JUST NEEDING SOME REDIRECTION. IS ADVANCING HIS DIET AND ADDRESSING HIS ELEVATED BP HE IS HAVING SINCE HE IS NOW OFF PRECEDEX. HE ALSO HAS BEEN CHANGED TO MEDICAL FLOOR STATUS. AWAITING TRANSFER.
--- NOTE | 2021-09-28 18:47 | NUR ---
PT ARRIVED TO THE MEDICAL FLOOR FROM THE ICU AROUND 1645. PT WAS ABLE TO TRANSFER FROM THE BED TO HIS BED WITH MINIMAL ASSIST. PT ORIENTED TO THE ROOM LAYOUT AND CALL SYSTEM. THE PT WORKED WITH THE PHYSICAL THERAPIST AND DID WELL PT HAS BALLARD BP HIGH MEDICATED WITH HYDRAZOLIN WITH LITTLE EFFECT. CALLED DR. Tam HOME BP MED STARTED AND GIVEN PT GIVEN TYLENOL. PT IS UP IN THE CHAIR AT THIS TIME. PT APPEARS TO BE BREATHING EASILY ON RA, CALL LIGHT IN REACH
--- NOTE | 2021-09-28 22:26 | NUR ---
NOW THAT PT IS EATING, MD NOTIFIED AND ACCU CHECKS CHANGED FROM Q 6, TO ACHS. NO INSULIN GIVEN THIS HS
--- NOTE | 2021-09-28 23:06 | NUR ---
CHAVEZ DC'D PER MD ORDERS WHEN CHAVEZ PLACED. WILL MONITOR FOR VOIDING. ALERT AND ORIENTED
--- NOTE | 2021-09-29 02:03 | NUR ---
VOIDED - POST REMOVAL OF CATH, INCONT OF URINE
--- NOTE | 2021-09-29 05:04 | NUR ---
N/V CONTINUES EVEN POST ANTIEMETIC. PROJECTILE EMESIS. C/O "COLD SWEATS". T 96.7 TEMPORAL. BP ELEVATED - WAS 195/112, NOW 170/85 AFTER ANTIHYPERTENSIVE. VERBAL RESPONSSE INTERMITTENT CONFUSION. CALL PLACED TO MD, ORDERS FOR TRANSFER TO ICU ON PCU STATUS OBTAINED. EMESIS APPEARS DARK BROWN. WILL SEND SAMPLE TO LAB FOR TEST.
--- NOTE | 2021-09-29 06:00 | NUR ---
ARRIVED TO ICU PATIENT ARRIVED TO ICU ON ROOM AIR, ALERT AND TRACKING TO SOUND, VOMITING LARGE AMOUNTS OF DARK BROWN/RED EMESIS. HR 130'S-140'S IN AFIB. SPO2 LOW TO MID 90'S ON ROOM AIR. BP ELEVATED. NO MEDS INF. RT IJ CL IN PLACE. A&O X 4. FOLLOWS COMMANDS, CALM BUT AGITATED AT TIMES. EASILY CONSOLED AND REDIRECTED. LUNGS CLEAR AND DIM T/O. NGT PLACED TO LT NARE AND ON LOW INT SUCTION. BT HYPERACTIVE T/O. EMESIS SLOWED AFTER ZOFRAN 4MG IV AND LOPRESSOR 5MG IV GIVEN. HR ALSO DECREASED TO 80'S AT LOWEST, NOW MAINTAINING AT 110'S. USES URINAL AT BEDSIDE, C/O BURNING WITH URINATION. SKIN OVERALL CLAMMY, COOL, PALE, WOUND TO LT SILVEIRA FROM FALL AT HOME-ADHESIVE DRESSING IN PLACE. NO OTHER CHANGES. REPORT COMPLETED WITH KASSIE CARDENAS.
[2021-09-29 06:05] LABS: Albumin, Blood 3.4 g/dL (3.4-5.0); Albumin/Globulin Ratio 0.9 (0.8-1.8); Bilirubin, Total 0.5 mg/dL (0.1-1.0); Bun/Creatinine Ratio 25.6 (12.0-20.0); Calcium, Blood 9.8 mg/dL (8.5-10.1); Creatinine, Blood 1.17 mg/dL (0.60-1.20); Globulin, Blood 3.9 g/dL (2.2-4.0); Potassium, Blood 3.2 mmol/L (3.5-5.5); Total Protein, Blood 7.3 g/dL (6.4-8.2)
--- NOTE | 2021-09-29 06:06 | NUR ---
TRANSFERRED PT TO ICU RM 09. REPORT GIVEN TO ICU NURSE. PT CONTINUES TO VOMIT.
[2021-09-29 07:58] LABS: Hematocrit 43.7 % (37.0-53.0); Hemoglobin 14.4 g/dL (13.5-17.5)
--- NOTE | 2021-09-29 09:43 | NUR ---
ASSUMED CARE REPORT FROM LUDMILA FERNANDO AT 0700. PT RESTING IN BED. DRY HEAVING. DR NOTIFIED, MEDICATED c PHENERGAN AND FENTANYL IVP ORDERED. PAIN AND NAUSEA RESOLVED. A&OX 3. FOLLOWS COMMANDS. COOPERATIVE c CARE. LUNGS CLEAR. ABD OBESE, SOFT, NON TENDER. BT X 4. NGT TO LEFT NARE, LIS, MAROON EMESIS OUT. PT ABLE TO USE CALL LIGHT APPROPRIATELY, MAKE NEEDS KNOWN AND REPOSITION SELF IN BED. WILL CONTINUE TO MONITOR.
[2021-09-29 14:09] LABS: Hematocrit 43.5 % (37.0-53.0); Hemoglobin 14.6 g/dL (13.5-17.5)
--- NOTE | 2021-09-29 18:00 | NUR ---
TRANSFER TO MEDICAL FLOOR/REPORT TO WYATT FERNANDO NGT REMOVED THIS SHIFT. 300 ML MAROOM EMESIS OUT. N/V IMPROVED AFTER NGT REMOVED. PT C/O IRRITATION TO GI TRACT. TOLERATED CLEAR LIQUID DIET WELL. CVC TO RIJ REMOVED, PETROLEUM DRESSING INTACT. PT TRANSFERRED TO [facility]. ALL BELONGINGS SENT c PT.
--- NOTE | 2021-09-29 18:03 | NUR ---
PT ARRIVED TO UNIT @ THIS TIME SBA TO BED. PT DENIES PAIN OR N/V. ORIENTATED TO ROOM. CALL LIGHT W/IN REACH. REQUESTING AMBIEN FOR REST, PLAN TO MEDICATE PER EMAR.
--- NOTE | 2021-09-30 05:03 | NUR ---
PT SLEEPING CONFORTABLY AT BEGINING OF SHIFT WITH 10MG AMBIEN. PT WOKE UP WITH NIGHT ASSESSMENT AND MEDICATIONS AND WAS UNABLE TO SLEEP. PT TAKES AN EXTENDED RELEASE AMBIEN AT HOME AND STATES THE ONE GIVEN BY THE HOSPITAL DOES NOT WORK AND CAUSES HIM HEADACHES. PT STATES HE WAS TOLD BY ANOTHER NURSE HE COULD NOT BRING HIS HOME MEDICATIONS IN, PT EDUCATED ON THE ABILITY TO DO SO IF HE STAYS ANOTHER NIGHT. HYPERTENSION WITH MORNING VITALS, PT GIVEN 20MG OF HYDRALAZINE WITH ADDEQUATE CHANGE IN BP.
[2021-09-30 05:14] LABS: BASOPHILS ABSOLUTE AUTO 0.03 K/mm3 (0.00-0.23); BASOPHILS PERCENT AUTO 0 % (0-2); EOSINOPHILS ABSOLUTE AUTO 0.02 K/mm3 (0.00-0.68); EOSINOPHILS PERCENT AUTO 0 % (0-6); Hematocrit 45.3 % (37.0-53.0); Hemoglobin 14.6 g/dL (13.5-17.5); IMMATURE GRAN ABSOLUTE AUTO 0.08 K/mm3 (0.00-0.10); IMMATURE GRAN PERCENT AUTO 1 % (0-1); LYMPHOCYTES ABSOLUTE AUTO 2.59 K/mm3 (0.84-5.20); LYMPHOCYTES PERCENT AUTO 19 % (21-46); MONOCYTES PERCENT AUTO 14 % (4-13); Mean Corpuscular HGB 29.5 pg (26.0-34.0); Mean Corpuscular HGB Conc 32.2 g/dL (31.5-36.5); Mean Corpuscular Volume 92 fL (80-100); Mean Platelet Volume 9.9 fL (9.1-12.4); NEUTROPHILS ABSOLUTE AUTO 9.24 K/mm3 (1.96-9.15); NEUTROPHILS PERCENT AUTO 67 % (41-73); Platelet Count 261 K/mm3 (150-400); RDW Coefficient Variation 15.3 % (11.7-14.2); RDW Standard Deviation 50.5 fL (35.1-46.3); Red Blood Cell Count 4.95 M/mm3 (4.30-5.90); White Blood Cell Count 13.86 K/mm3 (4.00-11.30)
[2021-09-30 05:38] LABS: Albumin, Blood 3.4 g/dL (3.4-5.0); Albumin/Globulin Ratio 0.9 (0.8-1.8); Bilirubin, Total 0.6 mg/dL (0.1-1.0); Bun/Creatinine Ratio 18.9 (12.0-20.0); Calcium, Blood 9.5 mg/dL (8.5-10.1); Creatinine, Blood 1.06 mg/dL (0.60-1.20); Globulin, Blood 3.9 g/dL (2.2-4.0); Total Protein, Blood 7.3 g/dL (6.4-8.2)
[2021-09-30 13:32] LABS: Bun/Creatinine Ratio 17.6 (12.0-20.0); Creatinine, Blood 1.02 mg/dL (0.60-1.20); Potassium, Blood 3.3 mmol/L (3.5-5.5)
--- NOTE | 2021-09-30 18:00 | NUR ---
SHIFT SUMMARY PATIENT IS ALERT AND ORIENTED X4. PATIENT HAS HOME MEDICATION OF AMBIEN IN DRAWER, TRIED CONFIRMING WITH PHARMACY AND CANT CREATE SCANABLE CODE. PATIENT HAD HTN IN THE MORNING AND WAS GIVEN PRN HYDRAZINE. PATIENT HAS HAD NO OTHER ACUTE EVENTS THIS SHIFT. COVERAGE FOR CBG WAS NOT NEEDED THIS SHIFT. PATIENT IS PLEASENT AND COOPERATIVE THIS SHIFT. BED IN LOCKED AND LOWEST POSITION. CALL LIGHT IN PLACE. WILL MONITOR UNTIL SHIFT CHANGE.
--- NOTE | 2021-10-01 04:35 | NUR ---
PT ANXIOUS ABOUT GETTING DISCHARGED, WANTING TO KNOW IF THE DOCTOR WROTE ANYTHING IN HIS CHART BECAUSE HE WAS TOLD HE WAS GOING HOME 10/01. PT STATES HIS DAUGHTER IS DRIVING DOWN FROM [place] FOR HIS DISCHARGE. BP ELEVATED THIS MORNING REQUIRING IV HYDRALIZINE. PT'S HR ELEVATES TO 130-140 PER TELE WHEN PATIENT IS AMBULATING OR DISCUSING HIS DISCHARGE.
[2021-10-01 05:16] LABS: BASOPHILS ABSOLUTE AUTO 0.06 K/mm3 (0.00-0.23); BASOPHILS PERCENT AUTO 0 % (0-2); EOSINOPHILS ABSOLUTE AUTO 0.16 K/mm3 (0.00-0.68); EOSINOPHILS PERCENT AUTO 1 % (0-6); Hematocrit 44.9 % (37.0-53.0); Hemoglobin 14.6 g/dL (13.5-17.5); IMMATURE GRAN ABSOLUTE AUTO 0.12 K/mm3 (0.00-0.10); IMMATURE GRAN PERCENT AUTO 1 % (0-1); LYMPHOCYTES ABSOLUTE AUTO 3.89 K/mm3 (0.84-5.20); LYMPHOCYTES PERCENT AUTO 26 % (21-46); MONOCYTES ABSOLUTE AUTO 1.52 K/mm3 (0.16-1.47); MONOCYTES PERCENT AUTO 10 % (4-13); Mean Corpuscular HGB 29.9 pg (26.0-34.0); Mean Corpuscular HGB Conc 32.5 g/dL (31.5-36.5); Mean Corpuscular Volume 92 fL (80-100); Mean Platelet Volume 9.9 fL (9.1-12.4); NEUTROPHILS ABSOLUTE AUTO 9.16 K/mm3 (1.96-9.15); NEUTROPHILS PERCENT AUTO 61 % (41-73); Platelet Count 261 K/mm3 (150-400); RDW Standard Deviation 51.1 fL (35.1-46.3); Red Blood Cell Count 4.89 M/mm3 (4.30-5.90); White Blood Cell Count 14.91 K/mm3 (4.00-11.30)
[2021-10-01 05:43] LABS: Albumin, Blood 3.3 g/dL (3.4-5.0); Albumin/Globulin Ratio 0.9 (0.8-1.8); Bilirubin, Total 0.5 mg/dL (0.1-1.0); Bun/Creatinine Ratio 18.9 (12.0-20.0); Calcium, Blood 9.1 mg/dL (8.5-10.1); Creatinine, Blood 1.06 mg/dL (0.60-1.20); Globulin, Blood 3.5 g/dL (2.2-4.0); Potassium, Blood 2.9 mmol/L (3.5-5.5); Total Protein, Blood 6.8 g/dL (6.4-8.2)
[2021-10-01] MEDS ORDERED: PANT20 PO (08:36)
[2021-10-01] MEDS ORDERED: LOSARTAN POTASS50 M1 PO (11:10)
[2021-10-01] MEDS ORDERED: POTCHL20ER PO (11:11)
--- NOTE | 2021-10-01 13:00 | NUR ---
PT AWAKE AT START OF SHIFT, DURING SHIFT REPORT. PT WANTING TO GO HOME ADALBERT[place]. PT UP TO BTHRM INDEPENDENTLY. PER TELE MX, HR INCREASED TO 130'S TO 150'S. DR MATTHEWS NOTIFIED OF PT STATUS. HOME MEDICATIONS ORDERED AND THEN GIVEN. MEDICATIONS EFFECTIVE; BP AND HR BOTH DECREASED, SEE CHART. DR CAT AND DR MATTHEWS BOTH IN TO SEE PT AND DISCUSS PLAN OF CARE. PT CLEAR TO D/C HOME. PT NOTIFIED AND DAUGHTER TO COME AND PICK HIM UP. D/C MEDS ADJUSTED AND D/C ORDERS REVIEWED WITH PT, , AND DAUGHTER. MEDS FAXED TO PHARMACY, PER PT REQUEST. PT TO HAVE PO KCL GIVEN AND THEN TO HAVE LAB DRAW PRIOR TO LEAVING. PT VERBALIZED UNDERSTANDING. LAB RETURNED WNL'S. PT ASSISTED OUT TO DAUGHTERS CAR VIA W/C. TAKING BELONGINGS. DENIED FURTHER NEEDS. PLEASANT AND CO-OP WITH CARE. FAMILY REQUESTED DIET EDU TO TAKE HOME. ANGELICA RN ABLE TO OBTAIN AND PRINT. FAMILY AND PT GRATEFUL.
--- NOTE | 2021-10-01 16:57 | NUR ---
pt was awake walking aroung in his room. pt was concerned about being discharged home. pt took medication well and no complaint of pain. pt potassium was 2.9, pt was given a stat order of potassium 40 mEq twice PO. pt was given discharge information and IV was discontiuned with no complications. Pt family was present and transported pt home.
[2021-10-03 08:10] LABS: HCV AB <0.1 (0.0-0.9)
== END 2021-10-01 12:32 | disposition home or self-care (01) | DRG 441 ==
LOC: ER 20:58 → ICUW 09-27 00:18 → MEDS 09-27 00:29 → ICUW 09-27 00:29 → MEDS 09-28 16:32 → ICUW 09-29 05:40 → MEDS 09-29 17:59
PROVIDERS: Emergency Medicine; Family Medicine; Student in an Organized Health Care Education/Training Program; ADMIT Internal Medicine
PROC: 05HM33Z Insertion of Infusion Device into Right Internal Jugular Vein, Percutaneous Approach (ICD-10-PCS; principal; 2021-09-26)
PROC: B543ZZA Ultrasonography of Right Jugular Veins, Guidance (ICD-10-PCS; 2021-09-26)
PROC: 3E043XZ Introduction of Vasopressor into Central Vein, Percutaneous Approach (ICD-10-PCS; 2021-09-27)
DX: K72.00 Acute and subacute hepatic failure without coma (principal); G92.8 Other toxic encephalopathy; R57.1 Hypovolemic shock; N17.9 Acute kidney failure, unspecified; E87.2 Acidosis; E72.20 Disorder of urea cycle metabolism, unspecified; K92.0 Hematemesis; Z20.822 Contact with and (suspected) exposure to COVID-19; Z78.1 Physical restraint status; D72.829 Elevated white blood cell count, unspecified; R01.1 Cardiac murmur, unspecified; K76.0 Fatty (change of) liver, not elsewhere classified; E87.6 Hypokalemia; E03.9 Hypothyroidism, unspecified; E11.649 Type 2 diabetes mellitus with hypoglycemia without coma; E78.5 Hyperlipidemia, unspecified; F41.9 Anxiety disorder, unspecified; G43.909 Migraine, unspecified, not intractable, without status migrainosus; E11.22 Type 2 diabetes mellitus with diabetic chronic kidney disease; I12.9 Hypertensive chronic kidney disease with stage 1 through stage 4 chronic kidney disease, or unspecified chronic kidney disease; N18.30 Chronic kidney disease, stage 3 unspecified; F32.A Depression, unspecified; G89.29 Other chronic pain; Z79.84 Long term (current) use of oral hypoglycemic drugs; Z79.899 Other long term (current) drug therapy
CPT/HCPCS: 36415; 36556; 51702; 70450; 71045; 74022; 76700; 80048; 80053; 80069; 80164; 81001; 82140; 82271; 82533; 82803; 82947; 83605; 83735; 83880; 84132; 84443; 84484; 85014; 85018; 85025; 85610; 86803; 87040; 87086; 87804; 93005; 93010; 93975; 96361; 96374; 96375; 97110; 97116; 97162; 97166; 97530; 97535; 99285-25; A9270; C1751; C9113; G0480; J0360; J0610; J0696; J1650; J1815; J2405; J2550; J2930; J3010; J3480; J7030; J7040; J7050; J7060; J7120; U0004

== ENCOUNTER 2021-10-25 16:38 | Inpatient (IN) | payer MEDICARE ==
[~2021-10-25] VITALS: Ht 182.9 cm; Wt 113.2 kg
[~2021-10-25 16:38] MED LIST changes: +ATOR40TA PO; +CATAPRES0.1 MG PO; +DIVALPROEX SOD500 M2 PO; +FAMO20 PO; +LINZESS72 MCG PO; +LOSARTAN POTASS50 M1 PO; +LOSARTAN-HCTZ1 EAC5 PO; +METPRE4DP PO; +Oxycodone HCl20 M1 PO; +PANT20 PO; +POTCHL20ER PO; +ZANAFLEX PO; +ZOLPIDEM TART12.5 MG PO; +[UNRECOGNIZED DRUG - CODE] PO
[2021-10-25 17:30] LABS: BASOPHILS ABSOLUTE AUTO 0.02 K/mm3 (0.00-0.23); BASOPHILS PERCENT AUTO 0 % (0-2); EOSINOPHILS ABSOLUTE AUTO 0.25 K/mm3 (0.00-0.68); EOSINOPHILS PERCENT AUTO 3 % (0-6); Hematocrit 41.7 % (37.0-53.0); Hemoglobin 13.4 g/dL (13.5-17.5); IMMATURE GRAN ABSOLUTE AUTO 0.02 K/mm3 (0.00-0.10); IMMATURE GRAN PERCENT AUTO 0 % (0-1); LYMPHOCYTES ABSOLUTE AUTO 2.32 K/mm3 (0.84-5.20); LYMPHOCYTES PERCENT AUTO 28 % (21-46); MONOCYTES ABSOLUTE AUTO 0.67 K/mm3 (0.16-1.47); MONOCYTES PERCENT AUTO 8 % (4-13); Mean Corpuscular HGB 29.9 pg (26.0-34.0); Mean Corpuscular HGB Conc 32.1 g/dL (31.5-36.5); Mean Corpuscular Volume 93 fL (80-100); Mean Platelet Volume 9.3 fL (9.1-12.4); NEUTROPHILS ABSOLUTE AUTO 4.97 K/mm3 (1.96-9.15); NEUTROPHILS PERCENT AUTO 60 % (41-73); Platelet Count 307 K/mm3 (150-400); RDW Coefficient Variation 14.6 % (11.7-14.2); Red Blood Cell Count 4.48 M/mm3 (4.30-5.90); White Blood Cell Count 8.25 K/mm3 (4.00-11.30)
[2021-10-25 17:57] LABS: Albumin, Blood 3.2 g/dL (3.4-5.0); Albumin/Globulin Ratio 0.8 (0.8-1.8); Bilirubin, Total 0.3 mg/dL (0.1-1.0); Bun/Creatinine Ratio 29.2 (12.0-20.0); Calcium, Blood 9.6 mg/dL (8.5-10.1); Creatinine, Blood 0.99 mg/dL (0.60-1.20); Total Protein, Blood 7.2 g/dL (6.4-8.2)
[2021-10-25 22:58] LABS: Anti-Xa UFH, PHA Monitoring <0.10 IU/mL; International Normalized Ratio 1.09; Prothrombin Time Results 11.4 Sec (9.7-11.5)
--- NOTE | 2021-10-26 02:26 | NUR ---
CALLED DR. FIGUEROA. RECEIVED 1X DOSE OF 50 MCG FENTANYL FOR CHEST PAIN NITRO X3 DIDN'T HAVE ANY EFFECT.
--- NOTE | 2021-10-26 05:34 | NUR ---
NEW ORDERS: PATIENT INCREASED CHEST PAIN WITH 7/10 RATING. TROPONIN INCREASED FROM 135 TO 147. GAVE NITRO X3 WITH NO LASTING EFFECT. PATIENT MOMENTARILY RATED PAIN DOWN TO 6 AND 10 MIN LATER RATED PAIN A 7 AGAIN. BP 216/78 DOWN TO 147/94 AFTER LABETOLOL ADMINISTERED. CHEST PAIN, NAUSEA, AND CLAMMINESS CONTINUED. REPORTED TO HOSPITALIST AND RECEIVED ORDERS FOR NEW TROPONIN DRAW AND 1X FENTANYL.
--- NOTE | 2021-10-26 07:00 | NUR ---
SHIFT SUMMARY: PATIENT ARRIVED BY RAND FROM ED AND AMBULATED TO BED. WEIGHED USING STANDING SCALE AND AMBULATED TO TOILET. PATIENT SAT ON EDGE OF BED AND BECAME LIGHT HEADED. PATIENT HAD COMPLAINTS OF CHEST PAIN AND HEADACHE T/O NIGHT. MEDICATED PER EMAR WITH NO OR VERY TEMPORARY IMPROVEMENTS IN BP OR PAIN. CARDIOLOGY CONSULT CALLED IN. MED LIST REVIEWED WITH SPOUSE, NEEDS REVIEWED AGAIN PER PHARMACY D/T DISCREPANCIES. PATIENT UNABLE TO GIVE MEDICATION HX "SPOUSE KEEPS TRACK OF ALL THAT." PATIENT PAINFUL AND SCARED. UPDATE GIVEN TO DAUGHTER SALOMON THIS AM. CALL LIGHT IN REACH. REPORT GIVEN TO ONCOMING RN.
[2021-10-26 08:39] LABS: Albumin, Blood 3.7 g/dL (3.4-5.0); Albumin/Globulin Ratio 0.9 (0.8-1.8); Bilirubin, Total 0.6 mg/dL (0.1-1.0); Bun/Creatinine Ratio 25.1 (12.0-20.0); Calcium, Blood 10.1 mg/dL (8.5-10.1); Creatinine, Blood 0.8 mg/dL (0.60-1.20); Globulin, Blood 4.2 g/dL (2.2-4.0); Potassium, Blood 3.1 mmol/L (3.5-5.5); Total Protein, Blood 7.9 g/dL (6.4-8.2)
[2021-10-26 08:43] LABS: BASOPHILS ABSOLUTE AUTO 0.03 K/mm3 (0.00-0.23); BASOPHILS PERCENT AUTO 0 % (0-2); EOSINOPHILS ABSOLUTE AUTO 0.02 K/mm3 (0.00-0.68); EOSINOPHILS PERCENT AUTO 0 % (0-6); Hematocrit 44.2 % (37.0-53.0); Hemoglobin 14.6 g/dL (13.5-17.5); IMMATURE GRAN ABSOLUTE AUTO 0.04 K/mm3 (0.00-0.10); IMMATURE GRAN PERCENT AUTO 0 % (0-1); LYMPHOCYTES ABSOLUTE AUTO 2.14 K/mm3 (0.84-5.20); LYMPHOCYTES PERCENT AUTO 22 % (21-46); MONOCYTES PERCENT AUTO 7 % (4-13); Mean Corpuscular HGB 29.6 pg (26.0-34.0); Mean Corpuscular Volume 90 fL (80-100); Mean Platelet Volume 9.4 fL (9.1-12.4); NEUTROPHILS ABSOLUTE AUTO 7.02 K/mm3 (1.96-9.15); NEUTROPHILS PERCENT AUTO 71 % (41-73); Platelet Count 349 K/mm3 (150-400); RDW Coefficient Variation 14.5 % (11.7-14.2); RDW Standard Deviation 47.5 fL (35.1-46.3); Red Blood Cell Count 4.93 M/mm3 (4.30-5.90); White Blood Cell Count 9.95 K/mm3 (4.00-11.30)
[2021-10-26 10:28] LABS: SARS-Cov-2 (COVID-19) PCR, MMC NEGATIVE (NEGATIVE)
[2021-10-26] MEDS ORDERED: Flomax0.4 MG PO (11:08)
[2021-10-26] MEDS ORDERED: POTCHL20ER PO (11:08)
[2021-10-26] MEDS ORDERED: Oxycodone HCl20 M1 PO (11:09)
[2021-10-26] MEDS ORDERED: ALLO300 PO (11:09)
[2021-10-26] MEDS ORDERED: LEVSOD75 PO (11:12)
[2021-10-26] MEDS ORDERED: FAMO20 PO (11:13)
[2021-10-26] MEDS ORDERED: TIZA4 PO ×2 (11:13→11:26)
[2021-10-26] MEDS ORDERED: Inderal40 MG PO ×2 (11:13→11:26)
[2021-10-26] MEDS ORDERED: ATOR40TA PO (11:14)
[2021-10-26] MEDS ORDERED: LINZESS72 MCG PO (11:14)
[2021-10-26] MEDS ORDERED: PANT20 PO (11:14)
[2021-10-26] MEDS ORDERED: FURO20 PO (11:18)
[2021-10-26] MEDS ORDERED: MIRT15ST PO (11:27)
[2021-10-26 11:55] LABS: Thyroid Stimulating Hormone 2.33 uIU/mL (0.360-4.800)
[2021-10-26] MEDS ORDERED: ZEBUTAL 50-3251 EAC1 PO (13:23)
[2021-10-26] MEDS ORDERED: ZOLP12.5 PO (13:47)
--- NOTE | 2021-10-26 17:51 | NUR ---
SHIFT SUMMARY; ASSUMED CARE AT 0700. A/A/OX4, REPORTS MID STERNAL CHEST PAIN WITH NAUSEA INCREASING TO VOMITING. HOSPITALIST NOTIFIED AND TO ROOM FOR ASSESMENT. PAIN MED ORDERS CHANGED AND ANTIEMETICS ORDERED. DR. ASHLEY TO ROOM. CATH PLANNED AND COMPLETED TODAY WITH RIGHT RADIAL SITE. TR BAND MONITORING PER PROTOCOL. WHEN RETURNED FROM ESTATE TAX EXAMINER APPEARS ANXIOUS AND NERVOUS. HOSPITALIST TO ROOM, ATARAX ORDERED PRN ANXIETY. DISCUSSED NON PHARMACOLOGIC ANXIETY CONTROL. REPORTS HEADACHE MOST OF DAY, STATES HAS HX OF MIGRAINES AND TAKES FIORICET. VERBAL ORDER GIVEN FROM DR. PEREIRA VIA PHONE. MEDICATED PER ORDERS. VSS, RADIAL SITE REMAINS DRY, WITHOUT SWELLING OR HEMATOMA, ARM BOARD IN PLACE. WILL CONTINUE TO MONITOR AND TREAT UNTIL CHANGE OF SHIFT.
--- NOTE | 2021-10-26 19:22 | NUR ---
CARE ASSUMPTION: PATIENT RECOVERING FROM R RADIAL ANGIO - 12 CC LEFT IN TBAND. SPOUSE AND DAUGHTER AT BEDSIDE. PATIENT STILL FEELING ANXIOUS BUT CHEST PAIN HAS LESSENED. PATIENT REQUESTS 2100 MEDS "ON THE EARLIER SIDE" SO HE CAN GET SOME REST. VS WNL ON 2L NC. CALL LIGHT IN PLACE.
[2021-10-27 04:24] LABS: BASOPHILS ABSOLUTE AUTO 0.03 K/mm3 (0.00-0.23); BASOPHILS PERCENT AUTO 0 % (0-2); EOSINOPHILS ABSOLUTE AUTO 0.01 K/mm3 (0.00-0.68); EOSINOPHILS PERCENT AUTO 0 % (0-6); Hematocrit 40.8 % (37.0-53.0); Hemoglobin 13.2 g/dL (13.5-17.5); IMMATURE GRAN ABSOLUTE AUTO 0.03 K/mm3 (0.00-0.10); IMMATURE GRAN PERCENT AUTO 0 % (0-1); LYMPHOCYTES ABSOLUTE AUTO 2.35 K/mm3 (0.84-5.20); LYMPHOCYTES PERCENT AUTO 24 % (21-46); MONOCYTES ABSOLUTE AUTO 0.94 K/mm3 (0.16-1.47); MONOCYTES PERCENT AUTO 10 % (4-13); Mean Corpuscular HGB 29.7 pg (26.0-34.0); Mean Corpuscular HGB Conc 32.4 g/dL (31.5-36.5); Mean Corpuscular Volume 92 fL (80-100); Mean Platelet Volume 9.6 fL (9.1-12.4); NEUTROPHILS ABSOLUTE AUTO 6.34 K/mm3 (1.96-9.15); NEUTROPHILS PERCENT AUTO 65 % (41-73); Platelet Count 312 K/mm3 (150-400); RDW Standard Deviation 50.7 fL (35.1-46.3); Red Blood Cell Count 4.44 M/mm3 (4.30-5.90)
[2021-10-27 04:43] LABS: Anion Gap 6 mmol/L (6-16); Blood Urea Nitrogen 18 mg/dL (8-24); Bun/Creatinine Ratio 17.5 (12.0-20.0); CHOL/HDL RATIO 2.9; CO2, Blood 27 mmol/L (21-32); Calcium, Blood 9.4 mg/dL (8.5-10.1); Chloride, Blood 108 mmol/L (98-108); Cholesterol 127 mg/dL (50-200); Creatinine, Blood 1.03 mg/dL (0.60-1.20); Glomerular Filtration Rate 75 (60-); Glucose, Blood 123 mg/dL (70-99); HDL Cholesterol 44 mg/dL (>39); LDL/HDL RATIO 1.4; Low Density Lipoprotein Chol 62 mg/dL (0-110); Sodium, Blood 141 mmol/L (136-145); Triglycerides 103 mg/dL (30-160); Very Low Density Lipoprot Chol 20 mg/dL (6-32)
--- NOTE | 2021-10-27 05:10 | NUR ---
SHIFT SUMMARY: PATIENT DENIES CHEST PAIN, OCCASIONAL COMPLAINTS OF NAUSEA W/O EMESIS. HYPTERTENSIVE, OTHER VSS ON RA. MEDICATED PER EMAR. PATIENT SLEPT WELL T/O NIGHT. TBAND RECOVERED, TEGADERM DRESSING IN PLACE UNDER ARMBOARD, ANGIO SITE WNL. PATIENT AMBULATES TO TOILET SBA OR USES URINAL. PATIENT STATES HE DOES NOT TAKE DEPAKOTE ANYMORE HIS "MD BELIEVES IT IS WHAT CAUSED SEPTEMBER 2021 ADMISSION R/T SIDE EFFECT OF CAUSING AMMONIA BUILD UP." PATIENT PLEASANT AND COOPERATIVE WITH CARE, ANXIOUS AT TIMES - TALKING HELPS SOOTHE. BED LOW WITH CALL LIGHT IN PLACE. WILL CONTINUE TO MONITOR AND REPORT TO ONCOMING RN.
--- NOTE | 2021-10-27 18:04 | NUR ---
SHIFT SUMMARY; ASSUMED CARE AT 0700. A/A/OX4. ARM BOARD INPLACE ON RIGHT HAND POST ANGIO. TEGEDERM ON SITE, NO BLEEDING OR HEMATOMA. DENIES CHEST PAIN T/O SHIFT. AMBULATES TO BATHROOM INDEPENDANTLY, VSS, MEDICATED PER EMAR. CONTINUES TO HAVE HEADACHE, MEDICATED PER EMAR. ANXIETY MUCH IMPROVED FROM PREVIOUS SHIFT. CALM AND PLEASANT WITH CARE. WILL CONTINUE TO MONITOR AND TREAT UNTIL CHANGE OF SHIFT.
[2021-10-28 03:57] LABS: BASOPHILS ABSOLUTE AUTO 0.03 K/mm3 (0.00-0.23); BASOPHILS PERCENT AUTO 0 % (0-2); EOSINOPHILS PERCENT AUTO 1 % (0-6); Hematocrit 39.4 % (37.0-53.0); Hemoglobin 12.4 g/dL (13.5-17.5); IMMATURE GRAN ABSOLUTE AUTO 0.04 K/mm3 (0.00-0.10); IMMATURE GRAN PERCENT AUTO 0 % (0-1); LYMPHOCYTES PERCENT AUTO 33 % (21-46); MONOCYTES ABSOLUTE AUTO 0.96 K/mm3 (0.16-1.47); MONOCYTES PERCENT AUTO 10 % (4-13); Mean Corpuscular HGB 29.5 pg (26.0-34.0); Mean Corpuscular HGB Conc 31.5 g/dL (31.5-36.5); Mean Corpuscular Volume 94 fL (80-100); Mean Platelet Volume 9.4 fL (9.1-12.4); NEUTROPHILS ABSOLUTE AUTO 5.16 K/mm3 (1.96-9.15); NEUTROPHILS PERCENT AUTO 55 % (41-73); Platelet Count 265 K/mm3 (150-400); RDW Standard Deviation 51.8 fL (35.1-46.3); Red Blood Cell Count 4.21 M/mm3 (4.30-5.90); White Blood Cell Count 9.39 K/mm3 (4.00-11.30)
--- NOTE | 2021-10-28 04:18 | NUR ---
SHIFT SUMMARY PT RESTED WELL THROUGH THE NIGHT. ALERT AND ORIENTED, ABLE TO MAKE NEEDS KNOWN. COOPERATIVE WITH PLAN OF CARE. SATS >90% ON ROOM AIR. TELE READS SINUS CHAITANYA/NSR. C/O MINIMAL CHEST PAIN, GAVE FENTANYL X1, RELIEVED. BP HAS REMAINED WNL, NO PRNS NEEDED. VOIDING TO URINAL. NO OTHER PAIN. VSS. CALL LIGHT WITHIN REACH, BED IN LOWEST POSITION. WILL CONTINUE TO MONITOR.
[2021-10-28 04:21] LABS: Bun/Creatinine Ratio 21.8 (12.0-20.0); Calcium, Blood 8.9 mg/dL (8.5-10.1); Creatinine, Blood 1.19 mg/dL (0.60-1.20); Potassium, Blood 3.7 mmol/L (3.5-5.5)
[2021-10-28] MEDS ORDERED: ASPI81CH PO (11:18)
[2021-10-28] MEDS ORDERED: AMLO5 PO (11:18)
[2021-10-28] MEDS ORDERED: CLOP75 PO (11:19)
[2021-10-28] MEDS ORDERED: Isosorbide Mono30 MG PO (11:20)
[2021-10-28] MEDS ORDERED: LOSA50 PO (11:21)
--- NOTE | 2021-10-28 13:02 | NUR ---
DISCHARGE NOTE PT WAS ALERT AND ORIENTED X 4 DURING SHIFT. VITAL SIGNS STABLE, PT WAS ON ROOM AIR W/ SPO2 >95%. HE CONTINUED TO DENY CHEST PAIN/PRESSURE DURING SHIFT BUT DID REPORT 7/10 BACK PAIN, SEE EMAR. RIGHT RADIAL ACCESS SITE REMAINED UNCHANGED FROM PREVIOUS ASSESSMENT WITH NO APPARENT BLEEDING, SWELLING OR HEMATOMA, TRANSPARENT DRESSING WAS REMOVED AND SITE WAS OPEN TO AIR. THIS NURSE DISCUSSED DISCHARGE INSTRUCTIONS INCLUDING RIGHT RADIAL ACCESS SITE CARE/LIMITATIONS, EDUCATION PROVIDED WITH HANDOUT. DISCHARGE INSTRUCTIONS ALSO INCLUDED NEW MEDICATIONS, FOLLOW UP APPOINTMENTS WITH PCP AND CARDIOLOGY, AND HEART HEALTHY DIET (EDUCATION HANDOUT INCLUDED). THE PT'S DAUGHTER AND WERE AT BEDSIDE DURING DISCHARGE INSTRUCTIONS. ALL OF THE PATIENTS BELONGINGS WENT WITH PT AND HE LEFT PCU AT 1235 VIA WHEELCHAIR, ESCORTED BY THIS NURSE. HE WAS STABLE UPON DISCHARGE.
[2021-11-01] MEDS ORDERED: LORA.5 PO (17:42)
== END 2021-10-28 12:35 | disposition home or self-care (01) | DRG 247 ==
LOC: ER 16:38 → PCU 21:21
PROVIDERS: Family Medicine; Internal Medicine Cardiovascular Disease; Physician Assistant; ADMIT Internal Medicine
PROC: 027034Z Dilation of Coronary Artery, One Artery with Drug-eluting Intraluminal Device, Percutaneous Approach (ICD-10-PCS; principal; 2021-10-26)
PROC: B2111ZZ Fluoroscopy of Multiple Coronary Arteries using Low Osmolar Contrast (ICD-10-PCS; 2021-10-26)
PROC: 4A023N7 Measurement of Cardiac Sampling and Pressure, Left Heart, Percutaneous Approach (ICD-10-PCS; 2021-10-26)
PROC: B24BZZ3 Ultrasonography of Heart with Aorta, Intravascular (ICD-10-PCS; 2021-10-26)
DX: I21.4 Non-ST elevation (NSTEMI) myocardial infarction (principal); I47.2 Ventricular tachycardia; I16.1 Hypertensive emergency; I25.10 Atherosclerotic heart disease of native coronary artery without angina pectoris; I16.0 Hypertensive urgency; E87.6 Hypokalemia; I12.9 Hypertensive chronic kidney disease with stage 1 through stage 4 chronic kidney disease, or unspecified chronic kidney disease; E78.5 Hyperlipidemia, unspecified; E03.9 Hypothyroidism, unspecified; G43.909 Migraine, unspecified, not intractable, without status migrainosus; M48.00 Spinal stenosis, site unspecified; K75.81 Nonalcoholic steatohepatitis (NASH); Z20.822 Contact with and (suspected) exposure to COVID-19; N18.9 Chronic kidney disease, unspecified; E11.22 Type 2 diabetes mellitus with diabetic chronic kidney disease; G89.29 Other chronic pain; F32.A Depression, unspecified; E66.9 Obesity, unspecified; Z68.35 Body mass index [BMI] 35.0-35.9, adult; F41.9 Anxiety disorder, unspecified; Z79.899 Other long term (current) drug therapy; Z91.14 Patient's other noncompliance with medication regimen
CPT/HCPCS: 36415; 71045; 76937; 80048; 80053; 80061; 82947; 83036; 83690; 83735; 84443; 84484; 85025; 85347; 85520; 85610; 93005; 93010; 93306; 93454; 94762; 96374; 99152; 99153; 99285-25; A9270; C1725; C1753; C1761; C1769; C1874; C1887; C1894; C9113; C9600; C9602; J0360; J1644; J2250; J2270; J2405; J3010; J3480; J7030; J7040; Q9967; U0004

== ENCOUNTER 2021-10-29 09:25 | Emergency (ER) | payer MEDICARE ==
[~2021-10-29] VITALS: Ht 182.9 cm; Wt 116.1 kg
[~2021-10-29 09:25] MED LIST changes: +AMLO5 PO; +ASPI81CH PO; +CLOP75 PO; +FURO20 PO; +Flomax0.4 MG PO; +Isosorbide Mono30 MG PO; +LOSA50 PO; +MIRT15ST PO; +TIZA4 PO; +ZEBUTAL 50-3251 EAC1 PO; +ZOLP12.5 PO
[2021-10-29 10:08] LABS: BASOPHILS ABSOLUTE AUTO 0.04 K/mm3 (0.00-0.23); BASOPHILS PERCENT AUTO 0 % (0-2); EOSINOPHILS ABSOLUTE AUTO 0.13 K/mm3 (0.00-0.68); EOSINOPHILS PERCENT AUTO 1 % (0-6); Hematocrit 37.6 % (37.0-53.0); Hemoglobin 11.9 g/dL (13.5-17.5); IMMATURE GRAN ABSOLUTE AUTO 0.03 K/mm3 (0.00-0.10); IMMATURE GRAN PERCENT AUTO 0 % (0-1); LYMPHOCYTES ABSOLUTE AUTO 2.45 K/mm3 (0.84-5.20); LYMPHOCYTES PERCENT AUTO 24 % (21-46); MONOCYTES ABSOLUTE AUTO 1.04 K/mm3 (0.16-1.47); MONOCYTES PERCENT AUTO 10 % (4-13); Mean Corpuscular HGB 29.6 pg (26.0-34.0); Mean Corpuscular HGB Conc 31.6 g/dL (31.5-36.5); Mean Corpuscular Volume 94 fL (80-100); Mean Platelet Volume 9.8 fL (9.1-12.4); NEUTROPHILS ABSOLUTE AUTO 6.43 K/mm3 (1.96-9.15); NEUTROPHILS PERCENT AUTO 64 % (41-73); Platelet Count 272 K/mm3 (150-400); RDW Standard Deviation 52.4 fL (35.1-46.3); Red Blood Cell Count 4.02 M/mm3 (4.30-5.90); White Blood Cell Count 10.12 K/mm3 (4.00-11.30)
[2021-10-29 10:29] LABS: Albumin/Globulin Ratio 0.9 (0.8-1.8); Bilirubin, Total 0.3 mg/dL (0.1-1.0); Bun/Creatinine Ratio 27.1 (12.0-20.0); Calcium, Blood 8.8 mg/dL (8.5-10.1); Creatinine, Blood 1.44 mg/dL (0.60-1.20); Globulin, Blood 3.5 g/dL (2.2-4.0); Potassium, Blood 4.9 mmol/L (3.5-5.5); Total Protein, Blood 6.5 g/dL (6.4-8.2)
[2021-11-01] MEDS ORDERED: LORA.5 PO (17:42)
== END 2021-10-29 13:49 | disposition home or self-care (01) ==
LOC: ER 09:25
PROVIDERS: Emergency Medicine
DX: R55 Syncope and collapse (principal); I95.9 Hypotension, unspecified; I25.10 Atherosclerotic heart disease of native coronary artery without angina pectoris; I21.4 Non-ST elevation (NSTEMI) myocardial infarction; Z95.5 Presence of coronary angioplasty implant and graft
CPT/HCPCS: 36415; 80053; 84484; 85025; 93005; 93010; 99284-25; A9270

== ENCOUNTER 2021-11-05 16:52 | Emergency (ER) | payer MEDICARE ==
[~2021-11-05] VITALS: Ht 195.6 cm; Wt 158.8 kg
[2021-11-05 18:19] LABS: BASOPHILS ABSOLUTE AUTO 0.03 K/mm3 (0.00-0.23); BASOPHILS PERCENT AUTO 0 % (0-2); EOSINOPHILS ABSOLUTE AUTO 0.06 K/mm3 (0.00-0.68); EOSINOPHILS PERCENT AUTO 1 % (0-6); Hematocrit 36.7 % (37.0-53.0); Hemoglobin 12.3 g/dL (13.5-17.5); IMMATURE GRAN ABSOLUTE AUTO 0.04 K/mm3 (0.00-0.10); IMMATURE GRAN PERCENT AUTO 1 % (0-1); LYMPHOCYTES ABSOLUTE AUTO 2.46 K/mm3 (0.84-5.20); LYMPHOCYTES PERCENT AUTO 28 % (21-46); MONOCYTES ABSOLUTE AUTO 0.55 K/mm3 (0.16-1.47); MONOCYTES PERCENT AUTO 6 % (4-13); Mean Corpuscular HGB 30.1 pg (26.0-34.0); Mean Corpuscular HGB Conc 33.5 g/dL (31.5-36.5); Mean Corpuscular Volume 90 fL (80-100); Mean Platelet Volume 9.3 fL (9.1-12.4); NEUTROPHILS ABSOLUTE AUTO 5.61 K/mm3 (1.96-9.15); NEUTROPHILS PERCENT AUTO 64 % (41-73); Platelet Count 293 K/mm3 (150-400); RDW Standard Deviation 46.1 fL (35.1-46.3); Red Blood Cell Count 4.08 M/mm3 (4.30-5.90); White Blood Cell Count 8.75 K/mm3 (4.00-11.30)
[2021-11-05 18:35] LABS: Albumin, Blood 3.1 g/dL (3.4-5.0); Albumin/Globulin Ratio 0.8 (0.8-1.8); Bilirubin, Total 0.2 mg/dL (0.1-1.0); Bun/Creatinine Ratio 20.7 (12.0-20.0); Calcium, Blood 9.6 mg/dL (8.5-10.1); Creatinine, Blood 1.16 mg/dL (0.60-1.20); Globulin, Blood 3.7 g/dL (2.2-4.0); Potassium, Blood 3.7 mmol/L (3.5-5.5); Total Protein, Blood 6.8 g/dL (6.4-8.2)
[2021-11-05] MEDS ORDERED: LORA.5 PO (19:19)
== END 2021-11-05 19:37 | disposition home or self-care (01) ==
LOC: ER 16:52
PROVIDERS: Physician Assistant
DX: R07.89 Other chest pain (principal); I10 Essential (primary) hypertension; F41.9 Anxiety disorder, unspecified; E11.9 Type 2 diabetes mellitus without complications; I25.10 Atherosclerotic heart disease of native coronary artery without angina pectoris; E03.9 Hypothyroidism, unspecified; E78.5 Hyperlipidemia, unspecified; Z79.899 Other long term (current) drug therapy
CPT/HCPCS: 36415; 71045; 80053; 84484; 85025; 93005; 93010; 96374; 99284-25; J2060

== ENCOUNTER 2021-11-06 18:22 | Emergency (ER) | payer MEDICARE ==
[~2021-11-06] VITALS: Ht 182.9 cm; Wt 117.0 kg
== END 2021-11-06 21:47 | disposition home or self-care (01) ==
LOC: ER 18:22
DX: R03.0 Elevated blood-pressure reading, without diagnosis of hypertension (principal); Z79.82 Long term (current) use of aspirin; Z79.899 Other long term (current) drug therapy
CPT/HCPCS: 99283

== ENCOUNTER 2021-11-08 10:37 | Emergency (ER) | payer MEDICARE ==
[~2021-11-08] VITALS: Ht 182.9 cm; Wt 117.0 kg
[2021-11-08 11:07] LABS: BASOPHILS ABSOLUTE AUTO 0.03 K/mm3 (0.00-0.23); BASOPHILS PERCENT AUTO 0 % (0-2); EOSINOPHILS ABSOLUTE AUTO 0.06 K/mm3 (0.00-0.68); EOSINOPHILS PERCENT AUTO 1 % (0-6); Hematocrit 41.2 % (37.0-53.0); Hemoglobin 13.4 g/dL (13.5-17.5); IMMATURE GRAN ABSOLUTE AUTO 0.03 K/mm3 (0.00-0.10); IMMATURE GRAN PERCENT AUTO 0 % (0-1); LYMPHOCYTES ABSOLUTE AUTO 2.36 K/mm3 (0.84-5.20); LYMPHOCYTES PERCENT AUTO 23 % (21-46); MONOCYTES ABSOLUTE AUTO 0.56 K/mm3 (0.16-1.47); MONOCYTES PERCENT AUTO 6 % (4-13); Mean Corpuscular HGB 29.8 pg (26.0-34.0); Mean Corpuscular HGB Conc 32.5 g/dL (31.5-36.5); Mean Corpuscular Volume 92 fL (80-100); Mean Platelet Volume 9.6 fL (9.1-12.4); NEUTROPHILS ABSOLUTE AUTO 7.11 K/mm3 (1.96-9.15); NEUTROPHILS PERCENT AUTO 70 % (41-73); Platelet Count 310 K/mm3 (150-400); RDW Coefficient Variation 14.6 % (11.7-14.2); RDW Standard Deviation 49.1 fL (35.1-46.3); White Blood Cell Count 10.15 K/mm3 (4.00-11.30)
[2021-11-08 11:26] LABS: Albumin, Blood 3.6 g/dL (3.4-5.0); Bilirubin, Total 0.2 mg/dL (0.1-1.0); Bun/Creatinine Ratio 23.8 (12.0-20.0); Calcium, Blood 9.2 mg/dL (8.5-10.1); Creatinine, Blood 1.26 mg/dL (0.60-1.20); Globulin, Blood 3.7 g/dL (2.2-4.0); Potassium, Blood 3.9 mmol/L (3.5-5.5); Total Protein, Blood 7.3 g/dL (6.4-8.2)
== END 2021-11-08 14:41 | disposition home or self-care (01) ==
LOC: ER 10:37
PROVIDERS: Physician Assistant
DX: I10 Essential (primary) hypertension (principal); R07.89 Other chest pain; E11.9 Type 2 diabetes mellitus without complications; I25.10 Atherosclerotic heart disease of native coronary artery without angina pectoris; E78.5 Hyperlipidemia, unspecified; E03.9 Hypothyroidism, unspecified; Z79.899 Other long term (current) drug therapy
CPT/HCPCS: 36415; 71045; 80053; 83880; 84484; 85025; 93005; 93010

== ENCOUNTER 2021-11-15 13:00 | Emergency (ER) | payer MEDICARE ==
[~2021-11-15] VITALS: Ht 182.9 cm; Wt 117.0 kg
[~2021-11-15 13:00] MED LIST changes: +NARCAN4 M1
[2021-11-15 13:48] LABS: BASOPHILS ABSOLUTE AUTO 0.02 K/mm3 (0.00-0.23); BASOPHILS PERCENT AUTO 0 % (0-2); EOSINOPHILS ABSOLUTE AUTO 0.26 K/mm3 (0.00-0.68); EOSINOPHILS PERCENT AUTO 3 % (0-6); Hematocrit 42.2 % (37.0-53.0); Hemoglobin 13.5 g/dL (13.5-17.5); IMMATURE GRAN ABSOLUTE AUTO 0.02 K/mm3 (0.00-0.10); IMMATURE GRAN PERCENT AUTO 0 % (0-1); LYMPHOCYTES ABSOLUTE AUTO 2.58 K/mm3 (0.84-5.20); LYMPHOCYTES PERCENT AUTO 30 % (21-46); MONOCYTES ABSOLUTE AUTO 0.62 K/mm3 (0.16-1.47); MONOCYTES PERCENT AUTO 7 % (4-13); Mean Corpuscular HGB 29.9 pg (26.0-34.0); Mean Corpuscular Volume 93 fL (80-100); Mean Platelet Volume 9.5 fL (9.1-12.4); NEUTROPHILS ABSOLUTE AUTO 5.24 K/mm3 (1.96-9.15); NEUTROPHILS PERCENT AUTO 60 % (41-73); Platelet Count 277 K/mm3 (150-400); RDW Coefficient Variation 14.6 % (11.7-14.2); RDW Standard Deviation 50.2 fL (35.1-46.3); Red Blood Cell Count 4.52 M/mm3 (4.30-5.90); White Blood Cell Count 8.74 K/mm3 (4.00-11.30)
[2021-11-15 14:18] LABS: Albumin, Blood 3.4 g/dL (3.4-5.0); Albumin/Globulin Ratio 0.8 (0.8-1.8); Bilirubin, Total 0.2 mg/dL (0.1-1.0); Bun/Creatinine Ratio 20.5 (12.0-20.0); Calcium, Blood 9.8 mg/dL (8.5-10.1); Creatinine, Blood 1.56 mg/dL (0.60-1.20); Potassium, Blood 4.5 mmol/L (3.5-5.5); Total Protein, Blood 7.4 g/dL (6.4-8.2)
[2021-11-16] MEDS ORDERED: Roxicodone5 MG PO (05:17)
== END 2021-11-15 20:51 | disposition home or self-care (01) ==
LOC: ER 13:00
PROVIDERS: Physician Assistant
DX: R07.9 Chest pain, unspecified (principal); E03.9 Hypothyroidism, unspecified; E11.9 Type 2 diabetes mellitus without complications; E78.5 Hyperlipidemia, unspecified; I10 Essential (primary) hypertension; I25.10 Atherosclerotic heart disease of native coronary artery without angina pectoris; I25.2 Old myocardial infarction; Z95.5 Presence of coronary angioplasty implant and graft; Z79.899 Other long term (current) drug therapy; Z79.82 Long term (current) use of aspirin
CPT/HCPCS: 36415; 70450; 71045; 80053; 83690; 83880; 84484; 85025; A9270; J0360; J1885; J2405; J2765

== ENCOUNTER 2021-11-16 04:21 | Emergency (ER) | payer MEDICARE ==
[~2021-11-16] VITALS: Ht 185.4 cm; Wt 116.1 kg
[2021-11-16] MEDS ORDERED: Roxicodone5 MG PO (05:17)
[2021-11-16 05:23] LABS: BASOPHILS ABSOLUTE AUTO 0.01 K/mm3 (0.00-0.23); BASOPHILS PERCENT AUTO 0 % (0-2); EOSINOPHILS ABSOLUTE AUTO 0.16 K/mm3 (0.00-0.68); EOSINOPHILS PERCENT AUTO 2 % (0-6); Hematocrit 41.2 % (37.0-53.0); Hemoglobin 13.4 g/dL (13.5-17.5); IMMATURE GRAN ABSOLUTE AUTO 0.02 K/mm3 (0.00-0.10); IMMATURE GRAN PERCENT AUTO 0 % (0-1); LYMPHOCYTES ABSOLUTE AUTO 2.11 K/mm3 (0.84-5.20); LYMPHOCYTES PERCENT AUTO 27 % (21-46); MONOCYTES ABSOLUTE AUTO 0.57 K/mm3 (0.16-1.47); MONOCYTES PERCENT AUTO 7 % (4-13); Mean Corpuscular HGB 29.6 pg (26.0-34.0); Mean Corpuscular HGB Conc 32.5 g/dL (31.5-36.5); Mean Corpuscular Volume 91 fL (80-100); Mean Platelet Volume 9.5 fL (9.1-12.4); NEUTROPHILS ABSOLUTE AUTO 4.96 K/mm3 (1.96-9.15); NEUTROPHILS PERCENT AUTO 63 % (41-73); Platelet Count 270 K/mm3 (150-400); RDW Coefficient Variation 14.6 % (11.7-14.2); RDW Standard Deviation 48.8 fL (35.1-46.3); Red Blood Cell Count 4.52 M/mm3 (4.30-5.90); White Blood Cell Count 7.83 K/mm3 (4.00-11.30)
[2021-11-16 05:36] LABS: Albumin, Blood 3.4 g/dL (3.4-5.0); Albumin/Globulin Ratio 0.9 (0.8-1.8); Bilirubin, Total 0.3 mg/dL (0.1-1.0); Bun/Creatinine Ratio 23.6 (12.0-20.0); Calcium, Blood 9.4 mg/dL (8.5-10.1); Creatinine, Blood 1.27 mg/dL (0.60-1.20); Globulin, Blood 3.8 g/dL (2.2-4.0); Potassium, Blood 3.9 mmol/L (3.5-5.5); Total Protein, Blood 7.2 g/dL (6.4-8.2)
[2021-11-17] MEDS ORDERED: INDERAL XL80 MG PO (14:13)
== END 2021-11-16 08:01 | disposition home or self-care (01) ==
LOC: ER 04:21
PROVIDERS: Emergency Medicine
DX: R07.89 Other chest pain (principal); I10 Essential (primary) hypertension; E11.9 Type 2 diabetes mellitus without complications; E78.5 Hyperlipidemia, unspecified; I25.10 Atherosclerotic heart disease of native coronary artery without angina pectoris; I25.2 Old myocardial infarction; Z95.5 Presence of coronary angioplasty implant and graft; Z79.899 Other long term (current) drug therapy; Z79.82 Long term (current) use of aspirin; Z79.02 Long term (current) use of antithrombotics/antiplatelets
CPT/HCPCS: 36415; 71260; 80053; 84484; 85025; A9270; Q9967

== ENCOUNTER 2021-11-16 10:45 | Emergency (ER) | payer MEDICARE ==
[~2021-11-16] VITALS: Ht 182.9 cm; Wt 116.1 kg
[~2021-11-16 10:45] MED LIST changes: +Roxicodone5 MG PO
[2021-11-17] MEDS ORDERED: INDERAL XL80 MG PO (14:13)
== END 2021-11-16 12:34 | disposition home or self-care (01) ==
LOC: ER 10:45
DX: I10 Essential (primary) hypertension (principal); R07.9 Chest pain, unspecified
CPT/HCPCS: 84484; A9270

== ENCOUNTER 2021-11-17 12:33 | Emergency (ER) | payer MEDICARE ==
[~2021-11-17] VITALS: Ht 182.9 cm; Wt 115.2 kg
[2021-11-17 13:05] LABS: Calcium, Ionized (POC) 1.15 mmol/L (1.10-1.46); Chloride (POC) 102 mmol/L (98-108); Creatinine (POC) 1.8 mg/dL (0.8-1.3); Glucose (ISTAT POC) 185 mg/dL (70-99); Hemoglobin (POC) 12.2 g/dL (13.5-17.5); Potassium (POC) 3.8 mmol/L (3.5-5.5); Sodium (POC) 139 mmol/L (135-148); Total CO2 (POC) 31 mmol/L (21-32)
[2021-11-17] MEDS ORDERED: INDERAL XL80 MG PO (14:13)
[2021-11-18] MEDS ORDERED: METF500 PO (19:12)
[2021-11-18] MEDS ORDERED: HYDRA25 PO (19:13)
[2021-11-18] MEDS ORDERED: HYDHCL25 PO (19:14)
[2021-11-18] MEDS ORDERED: SPIR50 PO (19:16)
== END 2021-11-17 14:50 | disposition home or self-care (01) ==
LOC: ER 12:33
PROVIDERS: Emergency Medicine
DX: R55 Syncope and collapse (principal); Z79.899 Other long term (current) drug therapy; Z79.82 Long term (current) use of aspirin
CPT/HCPCS: 70450; 80047; 85014

== ENCOUNTER 2021-11-21 17:41 | Emergency (ER) | payer MEDICARE ==
[~2021-11-21] VITALS: Ht 182.9 cm; Wt 69.8 kg
[~2021-11-21 17:41] MED LIST changes: +HYDHCL25 PO; +HYDRA25 PO; +INDERAL XL80 MG PO; +METF500 PO; +SPIR50 PO
== END 2021-11-21 18:06 | disposition home or self-care (01) ==
LOC: ER 17:41
DX: U07.1 COVID-19 (principal); E03.9 Hypothyroidism, unspecified; E11.9 Type 2 diabetes mellitus without complications; E78.5 Hyperlipidemia, unspecified; I10 Essential (primary) hypertension; I25.10 Atherosclerotic heart disease of native coronary artery without angina pectoris; Z79.899 Other long term (current) drug therapy
CPT/HCPCS: 93005; 93010; 99283-25

== ENCOUNTER 2021-11-21 20:08 | Emergency (ER) | payer MEDICARE ==
[~2021-11-21] VITALS: Ht 182.9 cm; Wt 115.2 kg
== END 2021-11-21 21:37 | disposition home or self-care (01) ==
LOC: ER 20:08
DX: U07.1 COVID-19 (principal); E11.9 Type 2 diabetes mellitus without complications; E78.5 Hyperlipidemia, unspecified; I10 Essential (primary) hypertension; I25.10 Atherosclerotic heart disease of native coronary artery without angina pectoris; Z79.899 Other long term (current) drug therapy; Z79.01 Long term (current) use of anticoagulants; Z79.82 Long term (current) use of aspirin; Z95.5 Presence of coronary angioplasty implant and graft
CPT/HCPCS: 99285-25

== ENCOUNTER → 2021-12-10 | Outpatient (CLI) | payer MEDICARE ==
[2021-12-10 15:55] LABS: BASOPHILS ABSOLUTE AUTO 0.02 K/mm3 (0.00-0.23); BASOPHILS PERCENT AUTO 0 % (0-2); EOSINOPHILS ABSOLUTE AUTO 0.12 K/mm3 (0.00-0.68); EOSINOPHILS PERCENT AUTO 2 % (0-6); Hematocrit 39.5 % (37.0-53.0); Hemoglobin 12.8 g/dL (13.5-17.5); IMMATURE GRAN ABSOLUTE AUTO 0.02 K/mm3 (0.00-0.10); IMMATURE GRAN PERCENT AUTO 0 % (0-1); LYMPHOCYTES ABSOLUTE AUTO 1.74 K/mm3 (0.84-5.20); LYMPHOCYTES PERCENT AUTO 25 % (21-46); MONOCYTES ABSOLUTE AUTO 0.35 K/mm3 (0.16-1.47); MONOCYTES PERCENT AUTO 5 % (4-13); Mean Corpuscular HGB Conc 32.4 g/dL (31.5-36.5); Mean Corpuscular Volume 93 fL (80-100); Mean Platelet Volume 9.5 fL (9.1-12.4); NEUTROPHILS ABSOLUTE AUTO 4.64 K/mm3 (1.96-9.15); NEUTROPHILS PERCENT AUTO 67 % (41-73); Platelet Count 265 K/mm3 (150-400); RDW Coefficient Variation 14.7 % (11.7-14.2); RDW Standard Deviation 49.8 fL (35.1-46.3); Red Blood Cell Count 4.27 M/mm3 (4.30-5.90); White Blood Cell Count 6.89 K/mm3 (4.00-11.30)
[2021-12-10 16:13] LABS: Bun/Creatinine Ratio 24.8 (12.0-20.0); Calcium, Blood 9.6 mg/dL (8.5-10.1); Creatinine, Blood 1.37 mg/dL (0.60-1.20); Potassium, Blood 4.5 mmol/L (3.5-5.5); Thyroid Stimulating Hormone 1.768 uIU/mL (0.360-4.800)
== END | disposition home or self-care (01) ==
LOC: LAB SHORT 15:49
PROVIDERS: Physician Assistant Surgical
DX: R07.9 Chest pain, unspecified (principal); R53.83 Other fatigue
CPT/HCPCS: 80048; 84443; 84484; 85025; 85379

== ENCOUNTER 2022-01-04 07:37 | Observation (INO) | payer MEDICARE | END 2022-01-06 15:33 | disposition home or self-care (01) | LOC: ER 07:37 → MEDS 07:38 | PROVIDERS: ADMIT Hospitalist | DX: I25.119 Atherosclerotic heart disease of native coronary artery with unspecified angina pectoris (principal); I95.9 Hypotension, unspecified; M54.9 Dorsalgia, unspecified; G89.29 Other chronic pain; F11.20 Opioid dependence, uncomplicated; N40.0 Benign prostatic hyperplasia without lower urinary tract symptoms; N28.9 Disorder of kidney and ureter, unspecified; I12.9 Hypertensive chronic kidney disease with stage 1 through stage 4 chronic kidney disease, or unspecified chronic kidney disease; N18.30 Chronic kidney disease, stage 3 unspecified; E11.22 Type 2 diabetes mellitus with diabetic chronic kidney disease; E03.9 Hypothyroidism, unspecified; E78.5 Hyperlipidemia, unspecified; Z79.899 Other long term (current) drug therapy; Z79.84 Long term (current) use of oral hypoglycemic drugs; Z79.890 Hormone replacement therapy; Z79.82 Long term (current) use of aspirin; Z79.02 Long term (current) use of antithrombotics/antiplatelets; Z95.5 Presence of coronary angioplasty implant and graft ==

== ENCOUNTER 2022-02-21 17:18 | Emergency (ER) | payer MEDICARE ==
[~2022-02-21] VITALS: Ht 182.9 cm; Wt 102.5 kg
[~2022-02-21 17:18] MED LIST changes: +AMLODIPINE BESY10 MG PO; +ATOR80; +Celexa20 MG PO; +ESCI10 PO; +FARXIGA5 MG PO; +LOSA25 PO; +METO100ER PO
[2022-02-21 17:56] LABS: BASOPHILS ABSOLUTE AUTO 0.03 K/mm3 (0.00-0.23); BASOPHILS PERCENT AUTO 0 % (0-2); EOSINOPHILS ABSOLUTE AUTO 0.05 K/mm3 (0.00-0.68); EOSINOPHILS PERCENT AUTO 1 % (0-6); Hematocrit 37.7 % (37.0-53.0); Hemoglobin 12.2 g/dL (13.5-17.5); IMMATURE GRAN ABSOLUTE AUTO 0.02 K/mm3 (0.00-0.10); IMMATURE GRAN PERCENT AUTO 0 % (0-1); LYMPHOCYTES ABSOLUTE AUTO 1.97 K/mm3 (0.84-5.20); LYMPHOCYTES PERCENT AUTO 28 % (21-46); MONOCYTES ABSOLUTE AUTO 0.76 K/mm3 (0.16-1.47); MONOCYTES PERCENT AUTO 11 % (4-13); Mean Corpuscular HGB Conc 32.4 g/dL (31.5-36.5); Mean Corpuscular Volume 90 fL (80-100); Mean Platelet Volume 9.5 fL (9.1-12.4); NEUTROPHILS ABSOLUTE AUTO 4.13 K/mm3 (1.96-9.15); NEUTROPHILS PERCENT AUTO 59 % (41-73); Platelet Count 302 K/mm3 (150-400); RDW Coefficient Variation 15.1 % (11.7-14.2); RDW Standard Deviation 49.1 fL (35.1-46.3); Red Blood Cell Count 4.21 M/mm3 (4.30-5.90); White Blood Cell Count 6.96 K/mm3 (4.00-11.30)
[2022-02-21 18:22] LABS: Source, Urine Clean Catch
[2022-02-21 18:26] LABS: Appearance, Urine Clear (Clear); Bilirubin, Urine Neg (Neg); Blood, Urine Neg (Neg); Color, Urine Yellow (P-Yellow); Glucose Qualitative, Urine 3+ (Neg); Ketones, Urine Neg (Neg); Leukocyte Esterase, Urine Neg (Neg); Nitrite, Urine Neg (Neg); Protein, Urine Neg (Neg); Specific Gravity, Urine 1.015 (1.003-1.022); Urobilinogen, Urine NORM (Normal)
[2022-02-21 18:26] LABS: Alanine Aminotransfer (ALT/SGP 16 U/L (12-78); Albumin, Blood 3.4 g/dL (3.4-5.0); Alk Phos 118 U/L (50-136); Anion Gap 5 mmol/L (6-16); Aspartate Aminotrans (AST/SGOT 9 U/L (12-37); Bilirubin, Total 0.4 mg/dL (0.1-1.0); Blood Urea Nitrogen 55 mg/dL (8-24); Bun/Creatinine Ratio 29.9 (12.0-20.0); CO2, Blood 28 mmol/L (21-32); Calcium, Blood 9.4 mg/dL (8.5-10.1); Chloride, Blood 105 mmol/L (98-108); Creatinine, Blood 1.84 mg/dL (0.60-1.20); Ethanol (Alcohol), Blood, Med <3 mg/dL; Globulin, Blood 3.4 g/dL (2.2-4.0); Glomerular Filtration Rate 38 (60-); Glucose, Blood 113 mg/dL (70-99); Potassium, Blood 3.6 mmol/L (3.5-5.5); Sodium, Blood 138 mmol/L (136-145); Total Protein, Blood 6.8 g/dL (6.4-8.2)
[2022-02-21 18:50] LABS: U Amphetamine Screen Not Detected; U Barbituate Screen DETECTED; U Benzodiazapine Screen DETECTED; U Buprenorphine Screen Not Detected; U Cannabinoids Screen Not Detected; U Cocaine Screen Not Detected; U Methadone Screen Not Detected; U Methamphetamine Screen Not Detected; U Opiates Screen DETECTED; U Oxycodone Screen DETECTED; U Phencyclidine Screen Not Detected; U Propoxyphene Screen Not Detected
== END 2022-02-21 20:00 | disposition home or self-care (01) ==
LOC: ER 17:18
PROVIDERS: Physician Assistant
DX: R41.0 Disorientation, unspecified (principal); E03.9 Hypothyroidism, unspecified; E11.9 Type 2 diabetes mellitus without complications; E78.5 Hyperlipidemia, unspecified; I10 Essential (primary) hypertension; I25.10 Atherosclerotic heart disease of native coronary artery without angina pectoris; I25.2 Old myocardial infarction; Z79.899 Other long term (current) drug therapy; Z79.82 Long term (current) use of aspirin
CPT/HCPCS: 36415; 70450; 80053; 81003; 85025; 93005; 93010; 99285-25; G0480